=== PATIENT | female | born 1950 | race Caucasian/White ===

== ENCOUNTER 2021-07-03 09:34 | Inpatient (IN) ==
--- NOTE | 2021-07-03 10:31 | Emergency Department Note ---
HPI General Chief complaint: Weakness Stated complaint: weakness, SOB Time Seen by Provider: 07/03/21 10:02 Source: patient Mode of arrival: wheelchair Limitations: no limitations History of Present Illness HPI Narrative: Patient is a 70-year-old lady arrives emergency department by private vehicle accompanied by her advertising rep complaining of generalized weakness. The patient says she has been feeling fatigued and rundown since Saturday. Unable to get out of bed all day Saturday because she felt too weak to stand up. She has had mild associated nausea. She does note that her blood sugar was low on Saturday but she has eaten since and has had normal glucose. Despite this, she has continued to have generalized weakness and felt too weak to get out of bed. Her advertising rep was concerned about the persistent nature of her symptoms so she brought her in for further evaluation. Patient has had similar symptoms in the past with hypoglycemia. She denies any vomiting or abdominal pain. She had a normal bowel movement 2 days ago and has been passing gas. She has been fully vaccinated for COVID-19. Related Data Home Medications Medication Instructions Recorded Confirmed ferrous sulfate 28 mg iron tablet 325 mg PO QDAY 07/25/16 07/03/21 amlodipine 5 mg tablet 5 mg PO QDAY 07/24/18 07/03/21 carvedilol 6.25 mg tablet 25 mg PO BID 90 Days #720 tab 07/24/18 07/03/21 potassium chloride 10 mEq 20 meq PO QDAY 07/24/18 07/03/21 capsule,extended release bupropion HCl 75 mg tablet 75 mg PO BID 01/22/19 07/03/21 insulin glargine 100 unit/mL (3 15 unit SQ DAILY 01/22/19 07/03/21 mL) subcutaneous pen clotrimazole-betamethasone 1 1 applic TOPICAL BID PRN 07/03/21 07/03/21 %-0.05 % topical cream denosumab 60 mg/mL subcutaneous 60 mg SUBCUT ONCE 07/03/21 07/03/21 syringe (Prolia) ondansetron HCl 4 mg tablet 4 mg PO Q6H PRN 07/03/21 07/03/21 tramadol 50 mg tablet 50 mg PO BID PRN 07/03/21 07/03/21 vitamin B complex 1 cap PO WEEKLY 07/03/21 07/03/21 Previous Rx's Medication Instructions Recorded flunisolide 25 mcg (0.025 %) nasal 2 spray INTRANASAL BID PRN #25 ml 12/31/16 spray glipizide 10 mg tablet 10 mg PO QDAY #90 tab 07/09/17 gabapentin 300 mg capsule See Dose Instructions .ROUTE 07/19/17 .COMPLEX #90 cap omeprazole 40 mg capsule,delayed 40 mg PO QDAY #90 cap 10/24/17 release atorvastatin 10 mg tablet 10 mg PO QDAY #90 tab 05/22/18 levothyroxine 75 mcg tablet 75 mcg PO QDAY #30 tab 07/22/18 torsemide 20 mg tablet 20 mg PO QDAY #90 tab 07/24/18 Allergies Allergy/AdvReac Type Severity Reaction Status Date / Time BERNA Inhibitors AdvReac Severe renal Verified 07/03/21 09:38 insufficiency ARB-Angiotensin Receptor AdvReac Severe renal Verified 07/03/21 09:38 Antagonist insufficiency spironolactone AdvReac Intermediate hyperkalemi Verified 07/03/21 09:38 a vancomycin [VANCOMYCIN] AdvReac Mild SEVERE Verified 07/03/21 09:38 VOMITING Review of Systems ROS ROS Narrative: Narrative: All systems ED: reviewed and negative except as stated. Cardiovascular: Denies chest pain Respiratory: Denies shortness of breath or cough PFSH Narrative Patient History Narrative: Narrative: Medical/Surgical/Family History All Active Problems (Updated 07/03/21 @ 15:33 by Norberto Mabry DO) UTI (urinary tract infection) (Acute) Congestive heart failure (Acute) Gout attack (Acute) Hypoglycemia (Acute) Gastroenteritis (Acute) Diabetes mellitus (Acute) Shingles (Acute) Edema (Acute) Chronic UTI (Chronic) Diabetes mellitus (Chronic) Osteoporosis (Chronic) Encounter for Health Maintenance Examination in Adult (Acute) Vitamin D deficiency (Chronic) Visual disturbance (Chronic 06/08/14) Rhabdomyolysis (Chronic 08/23/14) Renal osteodystrophy (Chronic) Pseudophakia (Chronic 06/08/14) Osteoarthritis (Chronic) Obesity (Chronic) Mild nonproliferative diabetic retinopathy (Chronic 06/08/14) Hyperparathyroidism, secondary renal (Chronic) Hyperlipemia (Chronic) Hyperglycemia (Chronic) HTN (hypertension) (Chronic 08/23/14) Gastroesophageal reflux (Chronic) 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 Schultz, lactic Acute gouty arthropathy Anemia in chronic kidney disease Blepharitis (06/08/14) Dr. Wilmer Bliss Chronic kidney disease, stage III (moderate) (06/04/12) Closed rib fracture Contusion, chest wall Degenerative disc disease Depressive disorder Diabetes mellitus Elbow contusion Encounter for Health Maintenance Examination in Adult last colonoscopy Dr Michael 2012 or so. Normal. Next due 2022. Gets labs done by Dr Kay q3m, will add lipid profile Fracture of tibia with fibula, closed (08/22/14) Gallstones 2000 Gastroesophageal reflux Gout attack History of gout HTN (hypertension) (08/23/14) Dr. Schultz Hyperglycemia Hyperlipemia Hyperparathyroidism, secondary renal Lateral epicondylitis of left elbow Mild nonproliferative diabetic retinopathy (06/08/14) Dr.Mark Sullivan Obesity Osteoarthritis Osteomyelitis, acute (09/20/14) Osteoporosis Proteinuria Pseudophakia (06/08/14) Dr. Wilmer Sullivan Renal osteodystrophy Rhabdomyolysis (08/23/14) Dr. Schultz Syncope and collapse (08/23/14) Dr. Schultz Type II diabetes mellitus with renal manifestations Type II diabetes mellitus, uncontrolled Visual disturbance (06/08/14) Dr. Wilmer Sullivan Vitamin D deficiency Surgical History History of biopsy (09/20/14) Left tibia acute osteomyelitis History of cataract surgery bilaterally History of cholecystectomy 2000 gallstones Status post debridement (10/22/14) Dr. Duke, see procedure note. Family History Mother Asthma Type 2 diabetes mellitus with complication Kidney disorder Father Cerebral infarction History of strokes Diabetes mellitus Acute myocardial infarction Unknown Allergic rhinitis Anemia Social History Smoking Status: Former smoker Alcohol Intake Frequency: does not drink Substance Use: does not use Exam Narrative Narrative: I reviewed the vital signs. Gen -patient is awake and alert and in no acute distress. The patient is well groomed. HEENT -head is atraumatic. There is no conjunctival pallor or scleral icterus. Mucous membranes are moist. CV -S1-S2 regular rate and rhythm. Peripheral pulses are palpable. There is no JVD. Resp -breathing is nonlabored. Lungs are clear to auscultation bilaterally. There is no cyanosis. GI - Abdomen is soft and nontender to palpation. There is no guarding or rebound tenderness. Derm -skin is warm and dry. There is no visible rash. MSK -present extremities are atraumatic. Patient's lower extremities are nontender to palpation. There is no visible rash. Steer tibial pulses are palpable bilaterally. Psych -patient has appropriate affect. The patient does not appear internally stimulated. Neuro -patient answers questions appropriately with fluent speech. Muscle strength is 5 out of 5 in bilateral lower extremities. Lower extremity sensation is intact. General Limitations: no limitations Course Vital Signs Vital signs: Vital Signs Temperature 98.7 F 07/03/21 09:35 Pulse Rate 83 07/03/21 09:35 Respiratory Rate 22 07/03/21 09:35 Blood Pressure 146/59 07/03/21 09:35 Pulse Oximetry (%) 96 07/03/21 09:35 Temperature 100.0 F H 07/03/21 14:50 Pulse Rate 80 07/03/21 14:52 Respiratory Rate 27 H 07/03/21 14:52 Blood Pressure 149/58 07/03/21 14:52 Pulse Oximetry (%) 90 07/03/21 14:52 [facility] Narrative Medical decision making narrative: Patient presents with generalized weakness. On initial exam she appears slightly dehydrated so she was given a small fluid bolus. Labs are remarkable for an elevated BNP and troponin that is minimally above the upper limit of normal. She has a leukocytosis and significant pyuria. Patient did develop a low-grade fever as well as mild hypoxemia in the emergency department. I discussed the test results with her and her advertising rep. I explained that I think she likely has a UTI and slightly decompensated heart failure. I recommended she be admitted for IV antibiotics and further diuresis. The patient was reluctantly agreeable to stay for further treatment. I discussed the patient's history examination and diagnostic findings with Dr. Ulrich, who agrees with the plan of care and accepts admission. Lab Data Lab results reviewed: Yes I reviewed the patient's lab results. Result diagrams: 07/03/21 10:19 Labs: Lab Results 07/03/21 07/03/21 07/03/21 Range/Units 10:19 10:19 10:19 WBC 15.4 H (4.5-11.0) K/mcL RBC 3.51 L (3.59-5.38) M/mcL Hgb 10.4 L (11.2-15.7) g/dL Hct 31.5 L (34.1-44.9) % POC Hct 30 L (36-48) % MCV 89.7 (80.0-100.0) fL MCH 29.6 (26.0-34.0) pg MCHC 33.0 (31.0-36.0) g/dL RDW 13.0 (11.5-14.5) % Plt Count 184 (140-440) K/mcL MPV 12.0 H (7.4-10.4) fL Neut % (Auto) 76.1 (38.0-78.0) % Lymph % (Auto) 13.3 L (15.5-49.0) % [place] % (Auto) 10.2 (1.0-12.0) % Eos % (Auto) 0.1 (0.0-7.0) % Baso % (Auto) 0.3 (0.0-2.0) % Lymph # (Auto) 2.05 (1.50-4.80) K/mcL [place] # (Auto) 1.57 H (0.10-0.90) K/mcL Eos # (Auto) 0.02 (0.00-0.70) K/mcL Baso # (Auto) 0.04 (0.00-0.30) K/mcL Absolute Neutrophils 11.73 H (1.80-8.00) K/mcL VBG Lactic Acid (0.5-2.0) mmol/L POC Sodium 137 (133-145) mEq/L POC Potassium 3.7 (3.3-5.1) mEql/L POC Chloride 101 (96-108) mEq/L POC Total CO2 19 L (22-30) mmol/L POC BUN 46 H (6-20) mg/dL POC Creatinine 3.1 H (0.6-1.2) mg/dL POC Glucose 132 H (70-105) mg/dL POC WB Ioniz Calcium 0.85 L (1.16-1.32) mmEq/L Troponin T 0.04 H* (<0.03) ng/mL NT-Pro-B Natriuret Pep 9470.0 H (<125.0) pg/mL Urine Color Urine Appearance (Clear) Urine pH (5.0-9.0) Ur Specific [place] (1.000-1.035) Urine Protein (Negative) mg/dL Urine Glucose (UA) (Negative) mg/dL Urine Ketones (Negative) mg/dL Urine Occult Blood (Negative) mg/dL Urine Nitrate (Negative) Urine Bilirubin (Negative) mg/dL Urine Urobilinogen mg/dL Ur Leukocyte Esterase (Negative) /uL Urine RBC (0-3) /hpf Urine WBC (0-4) /hpf Ur Squamous Epith Cells (0-4) /hpf Urine Bacteria (0) /hpf Urine Mucus (None) /hpf Ur Culture Indicated? 07/03/21 07/03/21 Range/Units 10:36 14:13 WBC (4.5-11.0) K/mcL RBC (3.59-5.38) M/mcL Hgb (11.2-15.7) g/dL Hct (34.1-44.9) % POC Hct (36-48) % MCV (80.0-100.0) fL MCH (26.0-34.0) pg MCHC (31.0-36.0) g/dL RDW (11.5-14.5) % Plt Count (140-440) K/mcL MPV (7.4-10.4) fL Neut % (Auto) (38.0-78.0) % Lymph % (Auto) (15.5-49.0) % [place] % (Auto) (1.0-12.0) % Eos % (Auto) (0.0-7.0) % Baso % (Auto) (0.0-2.0) % Lymph # (Auto) (1.50-4.80) K/mcL [place] # (Auto) (0.10-0.90) K/mcL Eos # (Auto) (0.00-0.70) K/mcL Baso # (Auto) (0.00-0.30) K/mcL Absolute Neutrophils (1.80-8.00) K/mcL VBG Lactic Acid 0.8 (0.5-2.0) mmol/L POC Sodium (133-145) mEq/L POC Potassium (3.3-5.1) mEql/L POC Chloride (96-108) mEq/L POC Total CO2 (22-30) mmol/L POC BUN (6-20) mg/dL POC Creatinine (0.6-1.2) mg/dL POC Glucose (70-105) mg/dL POC WB Ioniz Calcium (1.16-1.32) mmEq/L Troponin T (<0.03) ng/mL NT-Pro-B Natriuret Pep (<125.0) pg/mL Urine Color Yellow Urine Appearance Cloudy A (Clear) Urine pH 5.0 (5.0-9.0) Ur Specific [place] 1.008 (1.000-1.035) Urine Protein 100 A (Negative) mg/dL Urine Glucose (UA) Negative (Negative) mg/dL Urine Ketones Negative (Negative) mg/dL Urine Occult Blood 0.03 (Negative) mg/dL Urine Nitrate Negative (Negative) Urine Bilirubin Negative (Negative) mg/dL Urine Urobilinogen Negative mg/dL Ur Leukocyte Esterase 500 A (Negative) /uL Urine RBC 1 (0-3) /hpf Urine WBC 50 H (0-4) /hpf Ur Squamous Epith Cells 0 (0-4) /hpf Urine Bacteria Many A (0) /hpf Urine Mucus Few A (None) /hpf Ur Culture Indicated? yes ED POC Tests ED POC Tests: JUAN MIGUEL - Influenza A Negative JUAN MIGUEL - Influenza B Negative JUAN MIGUEL - SARS Antigen Negative Discharge Plan Patient/Caregiver Discharge Instructions Pt seen by SLIP INJECTOR AND APPLICATOR/PA only: No Clinical Impression: UTI (urinary tract infection), Congestive heart failure Patient Disposition: Xfer As Inpt ([facility]) Follow up with: Jose G Greer MD [Primary Care Provider] - Prescriptions: No Action flunisolide 25 mcg (0.025 %) spray,non-aerosol 2 spray INTRANASAL BID PRN (Reason: Symptoms) Qty: 25 12RF glipizide 10 mg tablet 10 mg PO QDAY Qty: 90 3RF gabapentin 300 mg capsule See Dose Instructions mg .ROUTE .COMPLEX Qty: 90 11RF Dose Instruction: Take 1 capsule each morning and 2 capsules in the evening Rx Instructions: Take 1 capsule each morning and 2 capsules in the evening atorvastatin 10 mg tablet 10 mg PO QDAY Qty: 90 1RF levothyroxine 75 mcg tablet 75 mcg PO QDAY Qty: 30 12RF ferrous sulfate 28 mg iron tablet 325 mg PO QDAY 0RF Label Comments: Patient is not certain on dose of iron she takes omeprazole 40 mg capsule,delayed release(DR/EC) 40 mg PO QDAY Qty: 90 3RF Rx Instructions: swallow whole (do not chew/crush/cut) carvedilol 6.25 mg tablet 25 mg PO BID 90 Days Qty: 720 0RF amlodipine 5 mg tablet 5 mg PO QDAY 0RF potassium chloride 10 mEq capsule, extended release 20 meq PO QDAY 0RF torsemide 20 mg tablet 20 mg PO QDAY Qty: 90 3RF bupropion HCl 75 MG tablet 75 mg PO BID 0RF insulin glargine 100 UNIT/ML insulin pen 15 unit SQ DAILY 0RF vitamin B complex Capsule 1 cap PO WEEKLY 0RF Prolia 60 mg/mL Syringe 60 mg SUBCUT ONCE 0RF Rx Instructions: twice yearly tramadol 50 mg Tablet 50 mg PO BID PRN (Reason: Pain) 0RF ondansetron HCl 4 mg Tablet 4 mg PO Q6H PRN (Reason: Nausea) 0RF clotrimazole-betamethasone 1-0.05 % Cream 1 applic TOPICAL BID PRN (Reason: Rash) 0RF
[2021-07-03] MEDS ORDERED: 0.9 % SODIUM CHLORIDE 1,000 ML IV ONE (10:34)
[2021-07-03 10:37] LABS: POC Blood Urea Nitrogen 46 mg/dL (6-20); POC CO2 19 mmol/L (22-30); POC Calcium, Ionized 0.85 mmEq/L (1.16-1.32); POC Chloride 101 mEq/L (96-108); POC Creatinine 3.1 mg/dL (0.6-1.2); POC Glucose, Random 132 mg/dL (70-105); POC Hematocrit 30 % (36-48); POC Potassium 3.7 mEql/L (3.3-5.1); POC Sodium 137 mEq/L (133-145)
[2021-07-03 11:09] LABS: Basophils # (Auto) 0.04 K/mcL (0.00-0.30); Basophils % (Auto) 0.3 % (0.0-2.0); Eosinophils # (Auto) 0.02 K/mcL (0.00-0.70); Eosinophils % (Auto) 0.1 % (0.0-7.0); Hematocrit 31.5 % (34.1-44.9); Hemoglobin 10.4 g/dL (11.2-15.7); Lymphocytes # (Auto) 2.05 K/mcL (1.50-4.80); Lymphocytes % (Auto) 13.3 % (15.5-49.0); Mean Cell Volume 89.7 fL (80.0-100.0); Monocytes # (Auto) 1.57 K/mcL (0.10-0.90); Monocytes % (Auto) 10.2 % (1.0-12.0); Neutrophils % (Auto) 76.1 % (38.0-78.0); Platelet Count 184 K/mcL (140-440); RBC 3.51 M/mcL (3.59-5.38); WBC 15.4 K/mcL (4.5-11.0)
--- NOTE | 2021-07-03 11:54 | XRay Report ---
CLINICAL INFORMATION: Dyspnea COMPARISON: 2014. TECHNIQUE: PA and Lateral views FINDINGS: The heart is mildly enlarged-increased from previous study. Mediastinum is normal. Pulmonary vessels are mildly distended no definite edema. Mild bibasilar atelectasis noted. No effusion. IMPRESSION: Borderline CHF or volume overload Interpreted and Authenticated by: Dorian Mcdonough 07/03/21
[2021-07-03] MEDS ORDERED: FUROSEMIDE 100 MG/10 ML VIAL IV ONE (12:46)
--- NOTE | 2021-07-03 14:31 | EKG ---
[facility] Test Date: 2021-07-03 Pat Name: Sharla Sanderson Department: ED Room: Gender: Female A P Manager: : 1950 Requested By: Norberto Mabry Order Number: [id number] Reading MD: Dorian Green M.D. Measurements Intervals [place] Rate: 80 P: 34 NC: 183 QRS: -23 QRSD: 121 T: 103 QT: 410 QTc: 473 Interpretive Statements Sinus rhythm Electronically Signed On 07-03-2021 14:30:56 PST by Dorian Green M.D. /[id number]
[2021-07-03] MEDS ORDERED: cefTRIAXone 1 GM VIAL IV ONE (14:50)
[2021-07-03 15:25] LABS: Appearance,Urine CLOUDY (Clear); Bacteria,Urine MANY /hpf (0); Bilirubin,Urine Negative (Negative); Color,Urine YELLOW; Culture Indicated,Urine yes; Glucose,Urine (UA) Negative (Negative); Ketones,Urine Negative (Negative); Leukocyte Esterase,Urine 500 /uL (Negative); Mucus,Urine FEW /hpf; Nitrate,Urine Negative (Negative); Protein,Urine 100 mg/dL (Negative); Specific Gravity,Urine 1.008 (1.000-1.035); Urine Blood 0.03 mg/dL (Negative); Urine RBC 1 /hpf (0-3); Urine Squamous Epithelial Cell 0 /hpf (0-4); Urine WBC 50 /hpf (0-4); Urobilinogen,Urine Negative
--- NOTE | 2021-07-03 15:32 | Internal Med History&Physical ---
HPI History of Present Illness Patient information: Note initiated : 07/03/21 at 3:29 pm Service Date, if different from initiated Date: [] Patient: Sharla Sanderson a 70 y/o F admitted on for weakness, SOB. Chief Complaint: [] History of present illness: Ms. Sanderson is a 70 year old F with a history of hypertension/hypothyroidism/CHF/HLD who presents to the ER after her caregiver currently from [facility] found her in a state of days this morning. Patient lives alone with the help of caregiver however through the weekend she was trying to manage herself. She became increasingly weak fatigued starting Saturday. Her health dramatically spiraled down. She was unable to feed herself or drink anything and has been confused throughout the weekend unable to function. Initial work-up in the ER was consistent with sepsis with UTI/CHF on chest imaging. Patient was started on antibiotic coverage. Also evidence of endorgan dysfunction including elevated creatinine. Subsequently hospitalist service was consulted in light of above At the time of my evaluation patient is accompanied with her caregiver Chinyere. She was able to answer most of the question. She denies active distress. She denies precipitating events including changes in medication, URI symptoms, diarrhea, dysuria fever chills or exposure to sick contacts. Review of systems 10 point review system was performed and is negative except for ones discussed above PFSH PFSH All Active Problems (Updated 07/03/21 @ 15:33 by Norberto Mabry DO) UTI (urinary tract infection) (Acute) Congestive heart failure (Acute) Gout attack (Acute) Hypoglycemia (Acute) Gastroenteritis (Acute) Diabetes mellitus (Acute) Shingles (Acute) Edema (Acute) Chronic UTI (Chronic) Diabetes mellitus (Chronic) Osteoporosis (Chronic) Encounter for Health Maintenance Examination in Adult (Acute) Vitamin D deficiency (Chronic) Visual disturbance (Chronic 06/08/14) Rhabdomyolysis (Chronic 08/23/14) Renal osteodystrophy (Chronic) Pseudophakia (Chronic 06/08/14) Osteoarthritis (Chronic) Obesity (Chronic) Mild nonproliferative diabetic retinopathy (Chronic 06/08/14) Hyperparathyroidism, secondary renal (Chronic) Hyperlipemia (Chronic) Hyperglycemia (Chronic) HTN (hypertension) (Chronic 08/23/14) Gastroesophageal reflux (Chronic) 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 Schultz, lactic Acute gouty arthropathy Anemia in chronic kidney disease Blepharitis (06/08/14) Dr. Wilmer Bliss Chronic kidney disease, stage III (moderate) (06/04/12) Closed rib fracture Contusion, chest wall Degenerative disc disease Depressive disorder Diabetes mellitus Elbow contusion Encounter for Health Maintenance Examination in Adult last colonoscopy Dr Michael 2012 or so. Normal. Next due 2022. Gets labs done by Dr Rahul ta, will add lipid profile Fracture of tibia with fibula, closed (08/22/14) Gallstones 2000 Gastroesophageal reflux Gout attack History of gout HTN (hypertension) (08/23/14) Dr. Schultz Hyperglycemia Hyperlipemia Hyperparathyroidism, secondary renal Lateral epicondylitis of left elbow Mild nonproliferative diabetic retinopathy (06/08/14) Dr.Mark Sullivan Obesity Osteoarthritis Osteomyelitis, acute (09/20/14) Osteoporosis Proteinuria Pseudophakia (06/08/14) Dr. Wilmer Sullivan Renal osteodystrophy Rhabdomyolysis (08/23/14) Dr. Schultz Syncope and collapse (08/23/14) Dr. Schultz Type II diabetes mellitus with renal manifestations Type II diabetes mellitus, uncontrolled Visual disturbance (06/08/14) Dr. Wilmer Sullivan Vitamin D deficiency Surgical History History of biopsy (09/20/14) Left tibia acute osteomyelitis History of cataract surgery bilaterally History of cholecystectomy 2000 gallstones Status post debridement (10/22/14) Dr. Duke, see procedure note. Family History Mother Asthma Type 2 diabetes mellitus with complication Kidney disorder Father Cerebral infarction History of strokes Diabetes mellitus Acute myocardial infarction Unknown Allergic rhinitis Anemia Social History marital status: occupational status: retired alcohol intake frequency: does not drink substance use type: does not use MEDS/ALLERGIES Home Medications and Allergies Home Medications Medication Instructions Recorded Confirmed Type ferrous sulfate 28 mg iron tablet 325 mg PO QDAY 07/25/16 07/03/21 History flunisolide 25 mcg (0.025 %) nasal 2 spray INTRANASAL BID PRN #25 ml 12/31/16 07/03/21 Rx spray glipizide 10 mg tablet 10 mg PO QDAY #90 tab 07/09/17 07/03/21 Rx gabapentin 300 mg capsule See Dose Instructions .ROUTE 07/19/17 07/03/21 Rx .COMPLEX #90 cap omeprazole 40 mg capsule,delayed 40 mg PO QDAY #90 cap 10/24/17 07/03/21 Rx release atorvastatin 10 mg tablet 10 mg PO QDAY #90 tab 05/22/18 07/03/21 Rx levothyroxine 75 mcg tablet 75 mcg PO QDAY #30 tab 07/22/18 07/03/21 Rx amlodipine 5 mg tablet 5 mg PO QDAY 07/24/18 07/03/21 History carvedilol 6.25 mg tablet 25 mg PO BID 90 Days #720 tab 07/24/18 07/03/21 History potassium chloride 10 mEq 20 meq PO QDAY 07/24/18 07/03/21 History capsule,extended release torsemide 20 mg tablet 20 mg PO QDAY #90 tab 07/24/18 07/03/21 Rx bupropion HCl 75 mg tablet 75 mg PO BID 01/22/19 07/03/21 History insulin glargine 100 unit/mL (3 15 unit SQ DAILY 01/22/19 07/03/21 History mL) subcutaneous pen clotrimazole-betamethasone 1 1 applic TOPICAL BID PRN 07/03/21 07/03/21 History %-0.05 % topical cream denosumab 60 mg/mL subcutaneous 60 mg SUBCUT ONCE 07/03/21 07/03/21 History syringe (Prolia) ondansetron HCl 4 mg tablet 4 mg PO Q6H PRN 07/03/21 07/03/21 History tramadol 50 mg tablet 50 mg PO BID PRN 07/03/21 07/03/21 History vitamin B complex 1 cap PO WEEKLY 07/03/21 07/03/21 History Allergies Allergy/AdvReac Type Severity Reaction Status Date / Time BERNA Inhibitors AdvReac Severe renal Verified 07/03/21 09:38 insufficiency ARB-Angiotensin Receptor AdvReac Severe renal Verified 07/03/21 09:38 Antagonist insufficiency spironolactone AdvReac Intermediate hyperkalemi Verified 07/03/21 09:38 a vancomycin [VANCOMYCIN] AdvReac Mild SEVERE Verified 07/03/21 09:38 VOMITING EXAM Constitutional Vitals: Temp Pulse Resp BP Pulse Ox 100.0 F H 80 27 H 149/58 90 07/03/21 14:50 07/03/21 14:52 07/03/21 14:52 07/03/21 14:52 07/03/21 14:52 Alert but anxious Head normocephalic Oral cavity dry No ear or nose discharge Eye no subconjunctival pallor, movement symmetrical S1-S2 occasionally irregular, ESM grade 1 Nonlabored breathing Nondistended nontender abdomen Lower extremity no cyanosis clubbing or joint swelling Skin no suspicious lesion Psych anxious but no hallucination Neuro GCS 13 DATA Data Completed and Pending Labs: Labs from last 24 hours 07/03/21 07/03/21 07/03/21 14:13 10:36 10:19 WBC RBC Hgb Hct POC Hct 30 L MCV MCH MCHC RDW Plt Count MPV Neut % (Auto) Lymph % (Auto) Riley % (Auto) Eos % (Auto) Baso % (Auto) Lymph # (Auto) Riley # (Auto) Eos # (Auto) Baso # (Auto) Absolute Neutrophils VBG Lactic Acid 0.8 POC Sodium 137 POC Potassium 3.7 POC Chloride 101 POC Total CO2 19 L POC BUN 46 H POC Creatinine 3.1 H POC Glucose 132 H POC WB Ioniz Calcium 0.85 L Troponin T NT-Pro-B Natriuret Pep 9470.0 H Urine Color Yellow Urine Appearance Cloudy A Urine pH 5.0 Ur Specific [place] 1.008 Urine Protein 100 A Urine Glucose (UA) Negative Urine Ketones Negative Urine Occult Blood 0.03 Urine Nitrate Negative Urine Bilirubin Negative Urine Urobilinogen Negative Ur Leukocyte Esterase 500 A Urine RBC 1 Urine WBC 50 H Ur Squamous Epith Cells 0 Urine Bacteria Many A Urine Mucus Few A Ur Culture Indicated? yes 07/03/21 07/03/21 10:19 10:19 WBC 15.4 H RBC 3.51 L Hgb 10.4 L Hct 31.5 L POC Hct MCV 89.7 MCH 29.6 MCHC 33.0 RDW 13.0 Plt Count 184 MPV 12.0 H Neut % (Auto) 76.1 Lymph % (Auto) 13.3 L Riley % (Auto) 10.2 Eos % (Auto) 0.1 Baso % (Auto) 0.3 Lymph # (Auto) 2.05 Riley # (Auto) 1.57 H Eos # (Auto) 0.02 Baso # (Auto) 0.04 Absolute Neutrophils 11.73 H VBG Lactic Acid POC Sodium POC Potassium POC Chloride POC Total CO2 POC BUN POC Creatinine POC Glucose POC WB Ioniz Calcium Troponin T 0.04 H* NT-Pro-B Natriuret Pep Urine Color Urine Appearance Urine pH Ur Specific [place] Urine Protein Urine Glucose (UA) Urine Ketones Urine Occult Blood Urine Nitrate Urine Bilirubin Urine Urobilinogen Ur Leukocyte Esterase Urine RBC Urine WBC Ur Squamous Epith Cells Urine Bacteria Urine Mucus Ur Culture Indicated? A/P Narrative A/P Narrative: * Acute hypoxic respiratory failure secondary to acute decompensated heart failure. Continue supplemental oxygen/noninvasive ventilation if indicated, serial imaging/blood gas * Acute decompensated heart failure, echocardiogram, gentle diuresis in the setting of sepsis, strict I's and O's and daily weights * Severe sepsis with endorgan dysfunction, secondary to UTI/suspected pneumonia continue antibiotic coverage, pancultures * Complicated UTI continue to biotic coverage, cultures * Acute on chronic kidney injury-Baseline stage IIIb CKD, nephrology consult * Weakness and deconditioning, PT OT/nutrition support * History of DM type II continue basal panel insulin * GERD continue PPI * Hypothyroidism contraction * Neuropathy continue gabapentin * Hypertension continue amlodipine * HLD continue statin * Anxiety disorder continue bupropion * Prophylaxis Heparin Plan * Inpatient PCU admission * Supplemental oxygen, gentle diuresis, I's and O's, daily weights * Echocardiogram * Antibiotic coverage * Sepsis management per guidelines * De-escalate antibiotics based on culture sensitivities Time Spent With Patient Time: Total time spent is greater than 50% in coordination of care (as documented) at patient's floor/unit and/or counseling patient: Total time spent with greater than 50% in coordination of care (as documented) at patient's floor/unit and/or counseling patient:: Greater than 35 minutes
[2021-07-03] MEDS ORDERED: MELATONIN 3 MG TABLET PO PRN (18:27)
[2021-07-03] MEDS ORDERED: POLYETHYLENE GLYCOL 3350 17 GM PACKET PO PRN (18:27)
[2021-07-03] MEDS ORDERED: BISACODYL 10 MG SUPP.RECT PR PRN (18:27)
[2021-07-03] MEDS ORDERED: ACETAMINOPHEN 325 MG TABLET PO PRN (18:27)
[2021-07-03] MEDS ORDERED: 0.9 % SODIUM CHLORIDE 1,000 ML IV SCH (18:27)
[2021-07-03] MEDS ORDERED: ONDANSETRON 4 MG ODT TABLET SL PRN (18:27)
[2021-07-03] MEDS ORDERED: MAGNESIUM SULFATE 2 GM/50 ML BAG IV PRN (18:27)
[2021-07-03] MEDS ORDERED: POTASSIUM CHLORIDE 40 MEQ in DEXTROSE 5% IN WATER 500 ML IV PRN (18:27)
[2021-07-03] MEDS ORDERED: METOPROLOL TARTRATE 5 MG/5 ML VIAL IV PRN (18:27)
[2021-07-03] MEDS ORDERED: ONDANSETRON 4 MG/2 ML VIAL IV PRN (18:27)
[2021-07-03] MEDS ORDERED: ACETAMINOPHEN 650 MG/65 ML BAG IV PRN (18:27)
[2021-07-03] MEDS ORDERED: guaiFENesin/CODEINE 10 ML UDC PO PRN (18:27)
[2021-07-03] MEDS ORDERED: POTASSIUM CHLORIDE 20 MEQ PACKET PO PRN (18:27)
[2021-07-03] MEDS: CARVEDILOL 12.5 MG TABLET PO SCH (20:34)
[2021-07-03] MEDS: AZITHROMYCIN 500 MG in DEXTROSE 5% IN WATER 250 ML IV SCH (20:34)
[2021-07-03] MEDS: HEPARIN 5,000 UNIT/ML VIAL SQ SCH (20:35)
[2021-07-03] MEDS: DOCUSATE SODIUM 100 MG CAPSULE PO SCH (20:41)
[2021-07-03] MEDS: SENNOSIDES/DOCUSATE SODIUM 1 TAB TABLET PO SCH (20:41)
[2021-07-03] MEDS: buPROPion 75 MG TABLET PO SCH (20:42)
[2021-07-03] MEDS: GABAPENTIN 300 MG CAPSULE PO SCH (20:44)
[2021-07-03] MEDS: 0.9 % SODIUM CHLORIDE 10 ML SYRINGE IV SCH (21:50)
[2021-07-04] MEDS: 0.9 % SODIUM CHLORIDE 10 ML SYRINGE IV SCH ×3 (06:14→20:50)
[2021-07-04] MEDS: LEVOTHYROXINE 75 MCG TABLET PO SCH (07:38)
[2021-07-04] MEDS: OMEPRAZOLE 20 MG CAPSULE PO SCH (07:38)
[2021-07-04] MEDS: DOCUSATE SODIUM 100 MG CAPSULE PO SCH ×2 (08:15→20:53)
[2021-07-04 08:33] LABS: Basophils # (Auto) 0.03 K/mcL (0.00-0.30); Basophils % (Auto) 0.2 % (0.0-2.0); Eosinophils # (Auto) 0.17 K/mcL (0.00-0.70); Eosinophils % (Auto) 1.4 % (0.0-7.0); Hematocrit 28.2 % (34.1-44.9); Hemoglobin 9.7 g/dL (11.2-15.7); Lymphocytes # (Auto) 1.93 K/mcL (1.50-4.80); Lymphocytes % (Auto) 15.4 % (15.5-49.0); Mean Cell Volume 89.5 fL (80.0-100.0); Mean Corpuscular HGB Conc 34.4 g/dL (31.0-36.0); Mean Platelet Volume 12.2 fL (7.4-10.4); Monocytes # (Auto) 1.15 K/mcL (0.10-0.90); Monocytes % (Auto) 9.2 % (1.0-12.0); Neutrophils % (Auto) 73.8 % (38.0-78.0); Platelet Count 180 K/mcL (140-440); RBC 3.15 M/mcL (3.59-5.38); Red Cell Distribution Width 12.7 % (11.5-14.5); WBC 12.6 K/mcL (4.5-11.0)
[2021-07-04] MEDS: HEPARIN 5,000 UNIT/ML VIAL SQ SCH ×2 (08:39→20:47)
[2021-07-04] MEDS: INSULIN GLARGINE, HUMAN 1 UNIT/0.01 ML SQ SCH (08:39)
[2021-07-04] MEDS: amLODIPine 5 MG TABLET PO SCH (08:40)
[2021-07-04] MEDS: GABAPENTIN 300 MG CAPSULE PO SCH ×2 (08:40→20:48)
[2021-07-04] MEDS: ATORVASTATIN 10 MG TABLET PO SCH (08:40)
[2021-07-04] MEDS: CARVEDILOL 12.5 MG TABLET PO SCH ×2 (08:40→16:55)
[2021-07-04] MEDS: MULTIVIT,THER IRON,CA,FA & MIN 1 TABLET PO SCH (08:40)
[2021-07-04 08:54] LABS: ALT/SGPT 18 U/L (<40); AST/SGOT 23 U/L (<32); Albumin 2.8 gm/dL (3.2-5.2); Albumin/Globulin Ratio 0.8 (1.0-2.3); Alkaline Phosphatase 99 U/L (39-117); Bilirubin,Direct < 0.2 mg/dL (0-0.3); Bilirubin,Total 0.4 mg/dL (0.1-1.0); Blood Urea Nitrogen 47 mg/dL (8-23); Calcium 6.6 mg/dL (8.6-10.4); Carbon Dioxide 17 mmol/L (22-30); Chloride 100 mmol/L (96-108); Globulin 3.4 gm/dL (2.2-3.7); Glomerular Filtration Rate 16; Glucose 95 mg/dL (70-105); Lactate Dehydrogenase 291 U/L (135-225); Phosphorous 2.7 mg/dL (2.5-4.5); Triglycerides 111 mg/dL (<150)
--- NOTE | 2021-07-04 10:14 | Nephrology Consult Note ---
HPI Data of Consult Patient: new to practice Consult date: 07/04/21 Primary Care Provider: Jose G Greer Family Provider: Dr Nelli Kay Consult Narrative Chief complaint: Bilateral leg weakness Reason for consult: Managment of CKD 4 History of present illness: Patient is a 70 yr old woman followed by Dr Nelli Kay with CKD G4. As per Dr Kay's note of 05/31/21 he felt she has hypertensive nephrosclerosis. She developed oedema with amlodipine so this was stopped and losartan started by PCP in October 2017. With this change her SCr went to 3.1 and hyperkalemia developed so the ARB was stopped and amlodipine re-initiated with some aldactone. Hyperkalemia developed again so the aldosterone antagonist was stopped. On day of visit in May, BP 160/94 and HR 71/min. BUN/SCr 32/2.4 mg/dl with eGFR 10. Na 142, K 3.9, Cl 103, and CO2 24. 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 She reports inability to ambulate within the past week and admitted to the hosp ital here at [facility]. Her GFR is reduced but not statistically worse than her outpatient values. Laboratory Tests 07/03/21 07/04/21 18:42 05:02 Sodium 133 Potassium 3.3 Chloride 100 Carbon Dioxide 17 L Anion Gap 16.0 BUN 47 H Creatinine 2.8 H GFR Calculation 16 Glucose 95 Uric Acid 11.0 H Calcium 6.6 L Phosphorus 2.7 Magnesium 1.5 L Total Bilirubin 0.4 Lactate Dehydrogenase 291 H Albumin 2.8 L Procalcitonin 1.24 H 07/03/21 14:13 Urine Color Yellow Urine Appearance Cloudy A Urine pH 5.0 Ur Specific [place] 1.008 Urine Protein 100 A Urine Glucose (UA) Negative Urine Ketones Negative Urine Occult Blood 0.03 Urine Nitrate Negative Urine Bilirubin Negative Urine Urobilinogen Negative Ur Leukocyte Esterase 500 A Urine RBC 1 Urine WBC 50 H Preliminary Urine C&S with Gm Neg Rods Serum Creatinine Echo Aug 2014: LVEF 75% / hyperdynamic LV Unable to perform bubble study No valvular issues Repeat Echo pending this hospitalization: Vital Signs Temp Pulse Pulse Resp BP Pulse Ox 07/04/21 08:21 74 17 99 07/04/21 08:05 36.7 C 77 21 112/61 99 07/04/21 06:01 70 23 H 129/60 92 07/04/21 04:02 36.4 C 69 23 H 129/57 96 07/04/21 02:01 68 22 117/49 96 07/04/21 00:01 36.3 C 67 21 128/63 98 07/03/21 23:08 97 07/03/21 22:01 70 23 H 122/61 97 07/03/21 20:09 36.7 C 75 13 123/50 92 07/03/21 18:58 76 24 H 140/60 94 07/03/21 18:54 36.7 C 76 25 H 137/62 96 07/03/21 18:18 36.8 C 76 24 H 97 07/03/21 17:59 80 25 H 93 07/03/21 17:46 78 29 H 140/61 90 07/03/21 17:31 77 20 137/62 92 07/03/21 17:17 78 26 H 134/60 95 07/03/21 17:02 79 26 H 144/58 93 07/03/21 16:46 28 H 132/63 07/03/21 16:30 78 26 H 140/58 91 07/03/21 16:18 80 21 92 07/03/21 16:17 80 26 H 124/57 93 07/03/21 16:01 80 25 H 154/79 91 07/03/21 15:46 81 26 H 138/67 94 07/03/21 15:31 78 15 146/59 92 07/03/21 15:16 79 19 141/96 91 07/03/21 15:01 81 22 157/53 89 L 07/03/21 14:52 80 27 H 149/58 90 07/03/21 14:50 37.8 C H 07/03/21 14:17 80 23 H 127/77 88 L 07/03/21 14:15 37.9 C H 07/03/21 14:01 77 27 H 139/67 93 07/03/21 13:46 79 22 152/69 93 07/03/21 13:31 79 25 H 159/67 90 07/03/21 13:16 82 19 152/66 94 07/03/21 13:01 79 27 H 152/65 85 L 07/03/21 12:46 79 28 H 150/69 87 L 07/03/21 12:31 78 26 H 155/64 87 L 07/03/21 12:16 79 25 H 157/57 85 L 07/03/21 12:00 79 25 H 157/60 87 L Intake and Output 07/03/21 07/04/21 07/04/21 21:59 05:59 13:59 Intake Total 1250 0 888 Output Total 400 400 475 Balance 850 -400 413 [place]: IV 1250 763 Sodium Chloride 0.9% 1,000 ml @ 1000 763 50 mls/hr IV .Q20H [facility] Rx#: [id number] Zithromax 500 mg In Dextrose 5% 250 in Water 250 ml @ 250 mls/hr IV Q24H [facility] Rx#:[id number] Oral 0 125 Output: Urine/Stool Mix 400 400 475 Other: Meal Breakfast Percent of Meal Consumed 25% Urine Appearance Straight Cloudy Urine Color Straight Pale Urine Odor Straight Normal Stool Size Moderate Stool Color Brown Stool Consistency Liquid # Bowel Movements 1 Weight 88.167 kg Current Medications Acetaminophen (Acetaminophen 325 Mg Tablet) 650 mg PO Q4-6HP PRN; Protocol PRN Reason: Per Pain Protocol/Fever > 101 Amlodipine Besylate (Amlodipine 5 Mg Tablet) 5 mg PO QDAY [facility] Last Admin: 07/04/21 08:40 Dose: 5 mg Documented by: Atorvastatin Calcium (Atorvastatin 10 Mg Tablet) 10 mg PO QDAY [facility] Last Admin: 07/04/21 08:40 Dose: 10 mg Documented by: Bisacodyl (Bisacodyl 10 Mg Supp.Rect) 10 mg HI Q2-3DAYS PRN PRN Reason: Constipation Bupropion HCl (Bupropion 75 Mg Tablet) 75 mg PO BID [facility] Last Admin: 07/04/21 11:11 Dose: 75 mg Documented by: Carvedilol (Carvedilol 12.5 Mg Tablet) [facility] Last Admin: 07/04/21 08:40 Dose: 25 mg Documented by: Docusate Sodium (Docusate Sodium 100 Mg Capsule) 100 mg PO BID [facility] Last Admin: 07/04/21 08:15 Dose: Not Given Documented by: Gabapentin (Gabapentin 300 Mg Capsule) [facility] [place] Last Admin: 07/04/21 08:40 Dose: 300 mg Documented by: Gabapentin (Gabapentin 300 Mg Capsule) 600 mg PO HS [facility] Last Admin: 07/03/21 20:44 Dose: 600 mg Documented by: Guaifenesin/Codeine Phosphate (Guaifenesin/Codeine 10 Ml Udc) 10 ml PO Q4HP PRN PRN Reason: Cough Heparin Sodium (Porcine) (Heparin 5,000 Unit/Ml Vial) 5,000 unit SQ Q12 [facility] Last Admin: 07/04/21 08:39 Dose: 5,000 unit Documented by: Azithromycin 500 mg/ Dextrose 250 mls @ 250 mls/hr IV Q24H [facility]; Protocol Stop: 07/05/21 19:26 Last Admin: 07/04/21 11:11 Dose: 250 mls/hr Documented by: Potassium Chloride 40 meq/ (Dextrose) 520 mls @ 130 mls/hr IV UD PRN PRN Reason: K+ = or < 3.5 Acetaminophen (Ofirmev) 650 mg in 65 mls @ 130 mls/hr IV Q6HP PRN; Protocol PRN Reason: Per Pain Protocol/Fever > 101 Magnesium Sulfate (Magnesium Sulfate) 2 gm in 50 mls @ 50 mls/hr IV UD PRN PRN Reason: MG = or < 1.7 Insulin Glargine (Insulin Glargine, Human 1 Unit/0.01 Ml) 15 unit SQ DAILY [facility] Last Admin: 07/04/21 08:39 Dose: 15 unit Documented by: Iron Carb/Multivit/Clerk Supervisor/Folic Acid (Multivit,Ther Iron,Ca,Fa & Min 1 Tablet) 1 tab PO DAILY [facility] Last Admin: 07/04/21 08:40 Dose: 1 tab Documented by: Levothyroxine Sodium (Levothyroxine 75 Mcg Tablet) 75 mcg PO QAMAC [facility] Last Admin: 07/04/21 07:38 Dose: 75 mcg Documented by: Melatonin (Melatonin 3 Mg Tablet) 3 mg PO HSP PRN PRN Reason: Insomnia Metoprolol Tartrate (Metoprolol Tartrate 5 Mg/5 Ml Vial) 5 mg IV Q5M PRN PRN Reason: Heart Rate > 140 bpm Omeprazole (Omeprazole 20 Mg Capsule) 40 mg PO ACB [facility] Last Admin: 07/04/21 07:38 Dose: 40 mg Documented by: Ondansetron HCl (Ondansetron 4 Mg Odt Tablet) 4 mg SL Q4-6HP PRN; Protocol PRN Reason: Nausea And Vomiting Ondansetron HCl (Ondansetron 4 Mg/2 Ml Vial) 4 mg IV Q4-6HP PRN; Protocol PRN Reason: Nausea And Vomiting Polyethylene Glycol (Polyethylene Glycol 3350 17 Gm Packet) 17 gm PO DAILYP PRN PRN Reason: Constipation Potassium Chloride (Potassium Chloride 20 Meq Tablet) 20 meq PO QAC [facility] Last Admin: 07/04/21 10:23 Dose: 20 meq Documented by: Potassium Chloride (Potassium Chloride 20 Meq Packet) 40 meq PO DAILYP PRN PRN Reason: K+ < 3.5 Senna/Docusate Sodium (Sennosides/Docusate Sodium 1 Tab Tablet) 1 tab PO HS [facility] Last Admin: 07/03/21 20:41 Dose: Not Given Documented by: Sodium Chloride (0.9 % Sodium Chloride 10 Ml Syringe) 10 ml IV Q8 [facility] Last Admin: 07/04/21 06:14 Dose: Not Given Documented by: Torsemide (Torsemide 10 Mg Tablet) 20 mg PO DAILY [facility] cc:: CC: Kit Garza Review of Systems All systems: reviewed and no additional remarkable complaints except as stated Review of systems: No NSAIDS Normal walking < 1 week LAPPER, (+) ADLs Renal history per Dr Kay's office notes Rest of ROS per HPI and/or ER and Hospitalist notes which [facility] All Active Problems (Updated 07/04/21 @ 16:36 by Rahul Gr MD) CKD stage 4 secondary to hypertension (Acute) Acute gouty arthropathy (Chronic) Anemia in chronic kidney disease (Chronic) Chronic kidney disease, stage III (moderate) (Chronic 06/04/12) Degenerative disc disease (Chronic) Depressive disorder (Chronic) 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) Gastroesophageal reflux (Chronic) HTN (hypertension) (Chronic 08/23/14) Hyperglycemia (Chronic) Hyperlipemia (Chronic) Hyperparathyroidism, secondary renal (Chronic) Mild nonproliferative diabetic retinopathy (Chronic 06/08/14) Obesity (Chronic) Osteoarthritis (Chronic) Pseudophakia (Chronic 06/08/14) Renal osteodystrophy (Chronic) Rhabdomyolysis (Chronic 08/23/14) Visual disturbance (Chronic 06/08/14) Vitamin D deficiency (Chronic) Encounter for Health Maintenance Examination in Adult (Acute) Osteoporosis (Chronic) Diabetes mellitus (Chronic) Chronic UTI (Chronic) Hypoglycemia (Acute) Gastroenteritis (Acute) Diabetes mellitus (Acute) Edema (Acute) Shingles (Acute) Gout attack (Acute) UTI (urinary tract infection) (Acute) Congestive heart failure (Acute) Medical History Acidosis (08/23/14) Dr. Schultz, lactic Acute gouty arthropathy Anemia in chronic kidney disease Blepharitis (06/08/14) Dr. Wilmer Bliss Chronic kidney disease, stage III (moderate) (06/04/12) Closed rib fracture Contusion, chest wall Degenerative disc disease Depressive disorder Diabetes mellitus Elbow contusion Encounter for Health Maintenance Examination in Adult last colonoscopy Dr Michael 2012 or so. Normal. Next due 2022. Gets labs done by Dr Rahul ta, will add lipid profile Fracture of tibia with fibula, closed (08/22/14) Gallstones 2000 Gastroesophageal reflux Gout attack History of gout HTN (hypertension) (08/23/14) Dr. Schultz Hyperglycemia Hyperlipemia Hyperparathyroidism, secondary renal Lateral epicondylitis of left elbow Mild nonproliferative diabetic retinopathy (06/08/14) Dr.Mark Sullivan Obesity Osteoarthritis Osteomyelitis, acute (09/20/14) Osteoporosis Proteinuria Pseudophakia (06/08/14) Dr. Wilmer Sullivan Renal osteodystrophy Rhabdomyolysis (08/23/14) Dr. Schultz Syncope and collapse (08/23/14) Dr. Schultz Type II diabetes mellitus with renal manifestations Type II diabetes mellitus, uncontrolled Visual disturbance (06/08/14) Dr. Wilmer Sullivan Vitamin D deficiency Surgical History History of biopsy (09/20/14) Left tibia acute osteomyelitis History of cataract surgery bilaterally History of cholecystectomy 2000 gallstones Status post debridement (10/22/14) Dr. Duke, see procedure note. Family History Mother Asthma Type 2 diabetes mellitus with complication Kidney disorder Father Cerebral infarction History of strokes Diabetes mellitus Acute myocardial infarction Unknown Allergic rhinitis Anemia Social History marital status: occupational status: retired alcohol intake frequency: does not drink substance use type: does not use MEDS/ALLERGIES Home Medications and Allergies Home Medications Medication Instructions Recorded Confirmed Type ferrous sulfate 28 mg iron tablet 325 mg PO QDAY 07/25/16 07/03/21 History flunisolide 25 mcg (0.025 %) nasal 2 spray INTRANASAL BID PRN #25 ml 12/31/16 07/03/21 Rx spray glipizide 10 mg tablet 10 mg PO QDAY #90 tab 07/09/17 07/03/21 Rx gabapentin 300 mg capsule See Dose Instructions .ROUTE 07/19/17 07/03/21 Rx .COMPLEX #90 cap omeprazole 40 mg capsule,delayed 40 mg PO QDAY #90 cap 10/24/17 07/03/21 Rx release atorvastatin 10 mg tablet 10 mg PO QDAY #90 tab 05/22/18 07/03/21 Rx levothyroxine 75 mcg tablet 75 mcg PO QDAY #30 tab 07/22/18 07/03/21 Rx amlodipine 5 mg tablet 10 mg PO QDAY 07/24/18 07/03/21 History potassium chloride 10 mEq 20 meq PO QDAY 07/24/18 07/03/21 History capsule,extended release torsemide 20 mg tablet 20 mg PO QDAY #90 tab 07/24/18 07/03/21 Rx bupropion HCl 75 mg tablet 75 mg PO BID 01/22/19 07/03/21 History insulin glargine 100 unit/mL (3 15 unit SQ DAILY 01/22/19 07/03/21 History mL) subcutaneous pen carvedilol 25 mg tablet 25 mg PO BID 07/03/21 07/03/21 History clotrimazole-betamethasone 1 1 applic TOPICAL BID PRN 07/03/21 07/03/21 History %-0.05 % topical cream denosumab 60 mg/mL subcutaneous 60 mg SUBCUT ONCE 07/03/21 07/03/21 History syringe (Prolia) ondansetron HCl 4 mg tablet 4 mg PO Q6H PRN 07/03/21 07/03/21 History tramadol 50 mg tablet 50 mg PO BID PRN 07/03/21 07/03/21 History vitamin B complex 1 cap PO WEEKLY 07/03/21 07/03/21 History Allergies Allergy/AdvReac Type Severity Reaction Status Date / Time BERNA Inhibitors AdvReac Severe renal Verified 07/03/21 09:38 insufficiency ARB-Angiotensin Receptor AdvReac Severe renal Verified 07/03/21 09:38 Antagonist insufficiency spironolactone AdvReac Intermediate hyperkalemi Verified 07/03/21 09:38 a vancomycin [VANCOMYCIN] AdvReac Mild SEVERE Verified 07/03/21 09:38 VOMITING Physical Examination Vital Signs Vital signs: Temp Pulse Resp BP Pulse Ox 36.7 C 74 17 112/61 99 07/04/21 08:05 07/04/21 08:21 07/04/21 08:21 07/04/21 08:05 07/04/21 08:21 General Appearance General appearance: chronically ill, fatigue and frail EENT EENT: ATNC, PERRL and mucous membranes dry Neck Neck: no JVD, JVD and no carotid bruit Respiratory Respiratory: clear Cardiovascular Cardiology: no murmurs, no rub, no gallops, no edema, regular rhythm, normal S1 and normal S2 Gastrointestinal Gastrointestinal: normoactive bowel sounds Integumentary Integumentary: no rash Neurologic Neurologic: no focal deficit, alert and oriented x3, CN 3-12 intact and upper extremity weakness (None) Musculoskeletal Musculoskeletal: no deformities Psychiatric Psychiatric: mood/affect appropriate Results Lab Results Result Diagrams: 07/04/21 05:03 07/04/21 05:02 Lab results: Most recent lab results Calcium 6.6 mg/dL (8.6-10.4) L 07/04/21 05:02 Phosphorus 2.7 mg/dL (2.5-4.5) 07/04/21 05:02 Magnesium 1.5 mg/dL (1.6-2.5) L 07/04/21 05:02 A/P Assessment and plan (1) CKD stage 4 secondary to hypertension: Assessment and plan: Followed by Dr Nelli Kay GFR relatively stable Probable has Type 4 RTA so no ACEi, ARBs or aldosterone antagonists B-blockers, hydralazine and loop diuretics for rLVEF if present. Status: Acute (2) UTI (urinary tract infection): Assessment and plan: Gm neg rods pending ID and speciation/sensitivity Status: Acute (3) Congestive heart failure: Assessment and plan: Awaiting results of echo Has NOT TOLERATED RAASI in the past so avoid ACEi/ARB/Aldosterone antagonists Status: Acute (4) Hyperparathyroidism, secondary renal: Assessment and plan: Check PTHi and Ca/PO4 Status: Chronic (5) Acute gouty arthropathy: Assessment and plan: Check uric acid Worsened by diuretics Status: Chronic Time Spent With Patient Time: Total time spent is greater than 50% in coordination of care (as documented) at patient's floor/unit and/or counseling patient: Total time spent with greater than 50% in coordination of care (as documented) at patient's floor/unit and/or counseling patient:: Greater than 35 minutes
[2021-07-04] MEDS: POTASSIUM CHLORIDE 20 MEQ TABLET PO SCH (10:23)
[2021-07-04] MEDS: buPROPion 75 MG TABLET PO SCH ×2 (11:11→20:49)
[2021-07-04] MEDS: AZITHROMYCIN 500 MG in DEXTROSE 5% IN WATER 250 ML IV SCH (11:11)
--- NOTE | 2021-07-04 11:44 | Internal Med Progress Note ---
SUBJECTIVE Subjective Patient information: Note initiated : 07/04/21 at 11:37 am Service Date, if different from initiated Date: [] Patient: Sharla Sanderson a 70 y/o F admitted on 07/03/21 for weakness, SOB. Chief Complaint: [] Interval history: Ms. Sanderson is a 70 year old F with a history of hypertension/hypothyroidism/CHF/HLD/CKD stage III who presents to the ER after her caregiver currently from [facility] found her in a state of daze this morning. Patient lives alone with the help of caregiver however through the weekend she was trying to manage herself without the caregiver She became increasingly weak fatigued starting Saturday. Her health dramatically spiraled down. She was unable to feed herself or drink anything and has been confused throughout the weekend unable to get around. Initial work-up in the ER was consistent with sepsis with UTI/pulmonary congestion on chest imaging. Patient was started on antibiotic coverage. Also evidence of endorgan dysfunction including elevated creatinine 50% above baseline Subsequently hospitalist service was consulted in light of above At the time of my evaluation patient is accompanied with her caregiver Chinyere. She was able to answer most of the question. She denies active distress. She denies precipitating events including changes in medication, URI symptoms, diarrhea, dysuria fever chills or exposure to sick contacts. 07/04-patient seen in room. Feels a lot better. Alert lucid. Caregiver at bedside. Tolerating diet. Able to ambulate to the hallway and back to physical therapy. White count down from 15-12.Creatinine improved from 3.1-2.8. Nephr ology on board, echocardiogram pending. On 2 L oxygen. No concerns expressed with nursing staff other than an episode of diarrhea. Check C. difficile No overnight fever chills chest pain or telemetry events. Transfer to medical floor. DC IV fluids. Constitutional Vitals: Vital Signs Temp Pulse Resp BP Pulse Ox 98.0 F 74 17 112/61 99 07/04/21 08:05 07/04/21 08:21 07/04/21 08:21 07/04/21 08:05 07/04/21 08:21 Period Temp Pulse Resp BP Sys/Kay Pulse Ox Last 24 Hr 97.4 F-100.2 F 67-82 13-29 112-159/49-96 85-99 Intake and Output 07/03/21 07/04/21 07/04/21 21:59 05:59 13:59 Intake Total 1250 0 888 Output Total 400 400 475 Balance 850 -400 413 Weight 88.167 kg Alert oriented No labored breathing No anxiety On 2 L oxygen No lymphedema Intake & Output: Intake & Output 07/03/21 07/04/21 07/04/21 21:59 05:59 13:59 Intake Total 1250 0 888 Output Total 400 400 475 Balance 850 -400 413 Weight 88.167 kg Intake: IV 1250 763 Sodium Chloride 0.9% 1,000 ml @ 1000 763 50 mls/hr IV .Q20H [facility] Rx#: [id number] Zithromax 500 mg In Dextrose 5% 250 in Water 250 ml @ 250 mls/hr IV Q24H [facility] Rx#:[id number] Oral 0 125 Output: Urine/Stool Mix 400 400 475 Other: Meal Breakfast Percent of Meal Consumed 25% Urine Appearance Straight Cloudy Urine Color Straight Pale Urine Odor Straight Normal Stool Size Moderate Stool Color Brown Stool Consistency Liquid # Bowel Movements 1 OBJ DATA Labs CBC & Chem 7: 07/04/21 05:03 07/04/21 05:02 Labs: Abnormal Lab Results 07/04/21 07/04/21 07/03/21 05:03 05:02 18:42 WBC 12.6 H RBC 3.15 L Hgb 9.7 L Hct 28.2 L POC Hct MPV 12.2 H Lymph % (Auto) 15.4 L [place] # (Auto) 1.15 H Absolute Neutrophils 9.28 H Carbon Dioxide 17 L POC Total CO2 POC BUN BUN 47 H Creatinine 2.8 H POC Creatinine POC Glucose Uric Acid 11.0 H Calcium 6.6 L POC WB Ioniz Calcium Magnesium 1.5 L Lactate Dehydrogenase 291 H Troponin T NT-Pro-B Natriuret Pep Albumin 2.8 L Albumin/Globulin Ratio 0.8 L Procalcitonin 1.24 H Urine Appearance Urine Protein Ur Leukocyte Esterase Urine WBC Urine Bacteria Urine Mucus 07/03/21 07/03/21 07/03/21 14:13 10:19 10:19 WBC RBC Hgb Hct POC Hct 30 L MPV Lymph % (Auto) [place] # (Auto) Absolute Neutrophils Carbon Dioxide POC Total CO2 19 L POC BUN 46 H BUN Creatinine POC Creatinine 3.1 H POC Glucose 132 H Uric Acid Calcium POC WB Ioniz Calcium 0.85 L Magnesium Lactate Dehydrogenase Troponin T 0.04 H* NT-Pro-B Natriuret Pep 9470.0 H Albumin Albumin/Globulin Ratio Procalcitonin Urine Appearance Cloudy A Urine Protein 100 A Ur Leukocyte Esterase 500 A Urine WBC 50 H Urine Bacteria Many A Urine Mucus Few A 07/03/21 10:19 WBC 15.4 H RBC 3.51 L Hgb 10.4 L Hct 31.5 L POC Hct MPV 12.0 H Lymph % (Auto) 13.3 L [place] # (Auto) 1.57 H Absolute Neutrophils 11.73 H Carbon Dioxide POC Total CO2 POC BUN BUN Creatinine POC Creatinine POC Glucose Uric Acid Calcium POC WB Ioniz Calcium Magnesium Lactate Dehydrogenase Troponin T NT-Pro-B Natriuret Pep Albumin Albumin/Globulin Ratio Procalcitonin Urine Appearance Urine Protein Ur Leukocyte Esterase Urine WBC Urine Bacteria Urine Mucus Meds: Medications Acetaminophen (Acetaminophen 325 Mg Tablet) 650 mg PO Q4-6HP PRN; Protocol PRN Reason: Per Pain Protocol/Fever > 101 Amlodipine Besylate (Amlodipine 5 Mg Tablet) 5 mg PO QDAY [facility] Last Admin: 07/04/21 08:40 Dose: 5 mg Documented by: Atorvastatin Calcium (Atorvastatin 10 Mg Tablet) 10 mg PO QDAY [facility] Last Admin: 07/04/21 08:40 Dose: 10 mg Documented by: Bisacodyl (Bisacodyl 10 Mg Supp.Rect) 10 mg [place] Q2-3DAYS PRN PRN Reason: Constipation Bupropion HCl (Bupropion 75 Mg Tablet) 75 mg PO BID [facility] Last Admin: 07/04/21 11:11 Dose: 75 mg Documented by: Carvedilol ([facility] 12.5 Mg [facility]t) [facility] Last Admin: 07/04/21 08:40 Dose: 25 mg Documented by: Docusate Sodium (Docusate Sodium 100 Mg Capsule) 100 mg PO BID [facility] Last Admin: 07/04/21 08:15 Dose: Not Given Documented by: Gabapentin (Gabapentin 300 Mg Capsule) 300 mg PO QAM [facility] Last Admin: 07/04/21 08:40 Dose: 300 mg Documented by: Gabapentin (Gabapentin 300 Mg Capsule) 600 mg PO [facility] Last Admin: 07/03/21 20:44 Dose: 600 mg Documented by: Guaifenesin/Codeine Phosphate (Guaifenesin/Codeine 10 Ml Udc) 10 ml PO Q4HP PRN PRN Reason: Cough Heparin Sodium (Porcine) (Heparin 5,000 Unit/Ml Vial) 5,000 unit SQ Q12 [facility] Last Admin: 07/04/21 08:39 Dose: 5,000 unit Documented by: Azithromycin 500 mg/ Dextrose 250 mls @ 250 mls/hr IV Q24H [facility]; Protocol Stop: 07/05/21 19:26 Last Admin: 07/04/21 11:11 Dose: 250 mls/hr Documented by: Potassium Chloride 40 meq/ (Dextrose) 520 mls @ 130 mls/hr IV UD PRN PRN Reason: K+ = or < 3.5 Acetaminophen (Ofirmev) 650 mg in 65 mls @ 130 mls/hr IV Q6HP PRN; Protocol PRN Reason: Per Pain Protocol/Fever > 101 Magnesium Sulfate (Magnesium Sulfate) 2 gm in 50 mls @ 50 mls/hr IV UD PRN PRN Reason: MG = or < 1.7 Insulin Glargine (Insulin Glargine, Human 1 Unit/0.01 Ml) 15 unit SQ DAILY [facility] Last Admin: 07/04/21 08:39 Dose: 15 unit Documented by: Iron Carb/Multivit/[place]/Folic Acid (Multivit,Ther Iron,Ca,Fa & Min 1 Tablet) 1 tab PO DAILY [facility] Last Admin: 07/04/21 08:40 Dose: 1 tab Documented by: Levothyroxine Sodium (Levothyroxine 75 Mcg Tablet) 75 mcg PO QAMAC [facility] Last Admin: 07/04/21 07:38 Dose: 75 mcg Documented by: Melatonin (Melatonin 3 Mg Tablet) 3 mg PO HSP PRN PRN Reason: Insomnia Metoprolol Tartrate (Metoprolol Tartrate 5 Mg/5 Ml Vial) 5 mg IV Q5M PRN PRN Reason: Heart Rate > 140 bpm Omeprazole (Omeprazole 20 Mg Capsule) 40 mg PO ACB [facility] Last Admin: 07/04/21 07:38 Dose: 40 mg Documented by: Ondansetron HCl (Ondansetron 4 Mg Odt Tablet) 4 mg SL Q4-6HP PRN; Protocol PRN Reason: Nausea And Vomiting Ondansetron HCl (Ondansetron 4 Mg/2 Ml Vial) 4 mg IV Q4-6HP PRN; Protocol PRN Reason: Nausea And Vomiting Polyethylene Glycol (Polyethylene Glycol 3350 17 Gm Packet) 17 gm PO DAILYP PRN PRN Reason: Constipation Potassium Chloride (Potassium Chloride 20 Meq Tablet) 20 meq PO QAMCC [facility] Last Admin: 07/04/21 10:23 Dose: 20 meq Documented by: Potassium Chloride (Potassium Chloride 20 Meq Packet) 40 meq PO DAILYP PRN PRN Reason: K+ < 3.5 Senna/Docusate Sodium (Sennosides/Docusate Sodium 1 Tab Tablet) 1 tab PO HS [facility] Last Admin: 07/03/21 20:41 Dose: Not Given Documented by: Sodium Chloride (0.9 % Sodium Chloride 10 Ml Syringe) 10 ml IV Q8 [facility] Last Admin: 07/04/21 06:14 Dose: Not Given Documented by: Torsemide (Torsemide 10 Mg Tablet) 20 mg PO DAILY [facility] A/P Narrative A/P Narrative: * Acute hypoxic respiratory failure secondary to acute decompensated heart failure. Continue supplemental oxygen/noninvasive ventilation if indicated, serial imaging/blood gas * Acute decompensated heart failure, echocardiogram pending, continue home dose diuretics. Currently well compensated * Severe sepsis with endorgan dysfunction, secondary to UTI/suspected pneumonia continue antibiotic coverage, pancultures * Complicated UTI continue antibiotic coverage, cultures pending * Acute on chronic kidney injury-Baseline stage IIIb CKD, nephrology consult. Creatinine down from 3.1-2.8 * Weakness and deconditioning, PT OT/nutrition support * History of DM type II continue basal prandial insulin/CC diet * GERD continue PPI * Hypothyroidism contraction * Neuropathy continue gabapentin * Hypertension continue amlodipine * HLD continue statin * Anxiety disorder continue bupropion * Prophylaxis Heparin Plan * Transfer to medical floor * Continue gentle diuresis/antibiotic coverage and de-escalate based on culture sensitivities * Await echocardiogram * Monitor renal function * Pre-existing medical condition management home medications * PT OT/nutrition support * Discharge planning Time Spent With Patient Time: Total time spent is greater than 50% in coordination of care (as documented) at patient's floor/unit and/or counseling patient: QUALITY VTE Deep Vein Thrombosis/Pulmonary Embolism Present on Admission: No
[2021-07-04] MEDS: INSULIN LISPRO 1 UNIT/0.01 ML UNIT SQ SCH ×2 (16:58→20:47)
[2021-07-04] MEDS: SENNOSIDES/DOCUSATE SODIUM 1 TAB TABLET PO SCH (20:53)
[2021-07-04] MEDS ORDERED: NON FORMULARY MEDICATION 1 DOSE MISCELL (Carvedilol 25 mg tablet) PO SCH (21:00)
[2021-07-05] MEDS: 0.9 % SODIUM CHLORIDE 10 ML SYRINGE IV SCH ×3 (05:19→20:47)
--- NOTE | 2021-07-05 06:38 | XRay Report ---
CLINICAL INFORMATION: Follow-up CHF COMPARISON: 07/01/2021 TECHNIQUE: PA and Lateral views FINDINGS: Borderline cardiomegaly is unchanged. Mediastinum is unremarkable. The pulmonary vessels remain mildly distended while compared with 08/22/2014 baseline chest x-ray. Moderate bibasilar airspace disease is likely atelectasis. No definite infiltrates or effusions. IMPRESSION: Borderline CHF. Minor bibasilar atelectasis. Interpreted and Authenticated by: Dorian Mcdonough 07/05/21
--- NOTE | 2021-07-05 07:59 | Nephrology Progress Note ---
SUBJECTIVE Subjective Patient information: Note initiated : 07/05/21 at 7:58 am Service Date, if different from initiated Date: [] Patient: Sharla Sanderson 70 y/o F admitted on 07/03/21 for weakness, SOB. Chief Complaint: [leg weakness] Principal diagnosis: ARF on CKD 3 Interval history: Seen on rounds. Transferred to [facility] Feels better Vital Signs Temp Pulse Pulse Resp BP BP Pulse Ox 07/05/21 03:48 36.9 C 73 20 115/54 93 07/04/21 23:43 37.2 C 68 18 116/52 92 07/04/21 19:49 37.6 C H 65 20 122/58 100 07/04/21 15:31 36.1 C L 67 20 133/61 96 07/04/21 15:22 69 18 113/60 96 07/04/21 14:01 22 114/51 07/04/21 13:19 65 21 91 07/04/21 12:00 36.3 C 19 119/65 07/04/21 10:00 68 18 116/63 97 07/04/21 08:21 74 17 99 07/04/21 08:05 36.7 C 77 21 112/61 99 Intake and Output 07/04/21 07/05/21 07/05/21 21:59 05:59 13:59 Intake Total 410 425 Output Total 200 425 Balance 210 0 Intake: IV 50 Oral 360 425 Output: Void Amount 200 425 Other: Urine Appearance Clear Urine Color Bright Yellow Urine Odor Foul Weight 88.632 kg Laboratory Tests 07/05/21 07/05/21 07/05/21 05:11 05:12 05:12 Sodium 134 Potassium 3.6 Chloride 99 Carbon Dioxide 18 L Anion Gap 17.0 H BUN 55 H Creatinine 2.8 H GFR Calculation 16 Glucose 78 Uric Acid 11.5 H Calcium 6.6 L Phosphorus 2.8 Magnesium 2.5 Total Bilirubin 0.3 GGT 29 AST 24 ALT 17 Alkaline Phosphatase 102 Lactate Dehydrogenase 339 H Total Creatine Kinase 202 H Total Protein 6.1 Albumin 2.8 L PTH Intact 448.6 H Blood culture NG at 24 hr Urine culture with Gm Neg Bacillus - ID & sensitivities pending 07/05/21: IMPRESSION: Borderline CHF. Minor bibasilar atelectasis. Current Medications Acetaminophen (Acetaminophen 325 Mg Tablet) 650 mg PO Q4-6HP PRN; Protocol PRN Reason: Per Pain Protocol/Fever > 101 Amlodipine Besylate (Amlodipine 5 Mg Tablet) 5 mg PO QDAY [facility] Last Admin: 07/04/21 08:40 Dose: 5 mg Documented by: Atorvastatin Calcium (Atorvastatin 10 Mg Tablet) 10 mg PO QDAY [facility] Last Admin: 07/04/21 08:40 Dose: 10 mg Documented by: Bisacodyl (Bisacodyl 10 Mg Supp.Rect) 10 mg [place] Q2-3DAYS PRN PRN Reason: Constipation Bupropion HCl (Bupropion 75 Mg Tablet) 75 mg PO BID [facility] Last Admin: 07/04/21 20:49 Dose: 75 mg Documented by: [facility]ilol ([facility]ilol 12.5 Mg Tablet) [facility] Last Admin: 07/04/21 16:55 Dose: 25 mg Documented by: Diagnostic Test (Pha) (Accu-Chek 1 Each Strip) 1 each FS ACHS [facility] Last Admin: 07/04/21 20:48 Dose: 1 each Documented by: Docusate Sodium (Docusate Sodium 100 Mg Capsule) 100 mg PO BID [facility] Last Admin: 07/04/21 20:53 Dose: Not Given Documented by: Gabapentin (Gabapentin 300 Mg Capsule) 300 mg PO QAM [facility] Last Admin: 07/04/21 08:40 Dose: 300 mg Documented by: Gabapentin (Gabapentin 300 Mg Capsule) 600 mg PO HS [facility] Last Admin: 07/04/21 20:48 Dose: 600 mg Documented by: Guaifenesin/Codeine Phosphate (Guaifenesin/Codeine 10 Ml Udc) 10 ml PO Q4HP PRN PRN Reason: Cough Heparin Sodium (Porcine) (Heparin 5,000 Unit/Ml Vial) 5,000 unit SQ Q12 [facility] Last Admin: 07/04/21 20:47 Dose: 5,000 unit Documented by: Azithromycin 500 mg/ Dextrose 250 mls @ 250 mls/hr IV Q24H [facility]; Protocol Stop: 07/05/21 19:26 Last Infusion: 07/04/21 12:34 Dose: Infused Documented by: Potassium Chloride 40 meq/ (Dextrose) 520 mls @ 130 mls/hr IV UD PRN PRN Reason: K+ = or < 3.5 Acetaminophen (Ofirmev) 650 mg in 65 mls @ 130 mls/hr IV Q6HP PRN; Protocol PRN Reason: Per Pain Protocol/Fever > 101 Magnesium Sulfate (Magnesium Sulfate) 2 gm in 50 mls @ 50 mls/hr IV UD PRN PRN Reason: MG = or < 1.7 Last Infusion: 07/04/21 16:54 Dose: Infused Documented by: Insulin Glargine (Insulin Glargine, Human 1 Unit/0.01 Ml) 15 unit SQ DAILY [facility] Last Admin: 07/04/21 08:39 Dose: 15 unit Documented by: Insulin Human Lispro (Insulin Lispro 1 Unit/0.01 Ml Unit) 0 unit SQ ACHS [facility]; Protocol Last Admin: 07/04/21 20:47 Dose: 2 unit Documented by: Iron Carb/Multivit/[place]/Folic Acid (Multivit,Ther Iron,Ca,Fa & Min 1 Tablet) 1 tab PO DAILY [facility] Last Admin: 07/04/21 08:40 Dose: 1 tab Documented by: Levothyroxine Sodium (Levothyroxine 75 Mcg Tablet) [facility] Last Admin: 07/04/21 07:38 Dose: 75 mcg Documented by: Melatonin (Melatonin 3 Mg Tablet) 3 mg PO HSP PRN PRN Reason: Insomnia Metoprolol Tartrate (Metoprolol Tartrate 5 Mg/5 Ml Vial) 5 mg IV Q5M PRN PRN Reason: Heart Rate > 140 bpm Omeprazole (Omeprazole 20 Mg Capsule) 40 mg PO ACB [facility] Last Admin: 07/04/21 07:38 Dose: 40 mg Documented by: Ondansetron HCl (Ondansetron 4 Mg Odt Tablet) 4 mg SL Q4-6HP PRN; Protocol PRN Reason: Nausea And Vomiting Ondansetron HCl (Ondansetron 4 Mg/2 Ml Vial) 4 mg IV Q4-6HP PRN; Protocol PRN Reason: Nausea And Vomiting Polyethylene Glycol (Polyethylene Glycol 3350 17 Gm Packet) 17 gm PO DAILYP PRN PRN Reason: Constipation Potassium Chloride (Potassium Chloride 20 Meq Tablet) [facility] Last Admin: 07/04/21 10:23 Dose: 20 meq Documented by: Potassium Chloride (Potassium Chloride 20 Meq Packet) 40 meq PO DAILYP PRN PRN Reason: K+ < 3.5 Senna/Docusate Sodium (Sennosides/Docusate Sodium 1 Tab Tablet) 1 tab PO HS [facility] Last Admin: 07/04/21 20:53 Dose: Not Given Documented by: Sodium Chloride (0.9 % Sodium Chloride 10 Ml Syringe) 10 ml IV Q8 [facility] Last Admin: 07/05/21 05:19 Dose: 10 ml Documented by: Torsemide (Torsemide 10 Mg Tablet) 20 mg PO DAILY [facility] Constitutional Vitals: Vital Signs Temp Pulse Resp BP Pulse Ox 36.9 C 73 20 115/54 93 07/05/21 03:48 07/05/21 03:48 07/05/21 03:48 07/05/21 03:48 07/05/21 03:48 Period Temp Pulse Resp BP Sys/Kay Pulse Ox Last 24 Hr 36.1 C-37.6 C 65-77 17-22 112-133/51-65 91-100 Intake and Output 07/04/21 07/05/21 07/05/21 21:59 05:59 13:59 Intake Total 410 425 Output Total 200 425 Balance 210 0 Weight 88.632 kg Intake & Output: Intake & Output 07/04/21 07/05/21 07/05/21 21:59 05:59 13:59 Intake Total 410 425 Output Total 200 425 Balance 210 0 Weight 88.632 kg Intake: IV 50 Oral 360 425 Output: Void Amount 200 425 Other: Urine Appearance Clear Urine Color Bright Yellow Urine Odor Foul General appearance: no acute distress and obese Exam: Sleeping comfortably Head Head exam: Present atraumatic and normocephalic Eye Eye exam: Present EOMI and PERRL; Absent nystagmus or scleral icterus Pupils: Present PERRL ENT ENT exam: Present mucous membranes dry Neck Neck exam: Present normal inspection Respiratory Respiratory exam: Present normal respiratory exam; Absent accessory muscle use Cardiovascular Cardiovascular exam: Present normal rate and rhythm, +S1 and +S2; Absent JVD or +S3 GI/Abdominal GI/Abdominal exam: Present normal bowel sounds and soft; Absent distended Extremities Exam Extremities exam: Present normal inspection; Absent calf tenderness, pedal edema or tenderness Back Exam Back exam: Absent CVA tenderness (L) or CVA tenderness (R) Neurological Exam Neurological exam: Present CN II-XII intact and oriented X3; Absent abnormal gait (Not tested) Psychiatric Psychiatric exam: Present flat affect and normal mood Skin Skin exam: Present dry A/P Assessment and plan (1) Acute renal failure superimposed on stage 4 chronic kidney disease: Status: Acute Comment: Hold diuretics (2) CKD stage 4 secondary to hypertension: Status: Acute Comment: Avoid overdiuresis (3) Hyperparathyroidism, secondary renal: Assessment and plan: Start calcitriol Status: Chronic (4) Metabolic acidosis: Assessment and plan: Start HCO3 replacement Status: Acute (5) Acute gouty arthropathy: Assessment and plan: Hold diuretics Monitor serum uric acid Status: Chronic Narrative A/P Narrative: * Reduce carvedilol from 25-to 12.5 mg a day and hold if blood pressure low * Avoid diuretics * Start 1,25 vitamin D3 therapy as calcitriol 0.25 mcg q. Saturday * Recheck calcium phosphorus and PTH levels as an outpatient with Dr. Kay * Start sodium bicarbonate therapy 650 mg p.o. twice daily with meals * Due to type IV RTA avoid BERNA inhibitors ARB medications and aldosterone antagonist due to their propensity to cause hyperkalemia in this patient * Consider treating gram-negative bacilli with culture directed antibiotics avoiding sulfa. * Follow-up with Dr. Kay upon discharge Time Spent With Patient Time: Total time spent is greater than 50% in coordination of care (as documented) at patient's floor/unit and/or counseling patient: Total time spent with greater than 50% in coordination of care (as documented) at patient's floor/unit and/or counseling patient:: 25 - 35 minutes
[2021-07-05] MEDS: INSULIN LISPRO 1 UNIT/0.01 ML UNIT SQ SCH ×4 (08:05→20:46)
[2021-07-05] MEDS: INSULIN GLARGINE, HUMAN 1 UNIT/0.01 ML SQ SCH (08:30)
[2021-07-05] MEDS: TORSEMIDE 10 MG TABLET PO SCH (08:30)
[2021-07-05] MEDS: CARVEDILOL 12.5 MG TABLET PO SCH ×2 (08:30→16:55)
[2021-07-05] MEDS: MULTIVIT,THER IRON,CA,FA & MIN 1 TABLET PO SCH (08:30)
[2021-07-05] MEDS: GABAPENTIN 300 MG CAPSULE PO SCH ×2 (08:31→20:47)
[2021-07-05] MEDS: HEPARIN 5,000 UNIT/ML VIAL SQ SCH ×2 (08:31→20:48)
[2021-07-05] MEDS: amLODIPine 5 MG TABLET PO SCH (08:31)
[2021-07-05] MEDS: OMEPRAZOLE 20 MG CAPSULE PO SCH (08:31)
[2021-07-05] MEDS: ATORVASTATIN 10 MG TABLET PO SCH (08:31)
[2021-07-05] MEDS: POTASSIUM CHLORIDE 20 MEQ TABLET PO SCH (08:31)
[2021-07-05] MEDS: DOCUSATE SODIUM 100 MG CAPSULE PO SCH ×2 (08:32→20:48)
[2021-07-05 09:11] LABS: Basophils # (Auto) 0.03 K/mcL (0.00-0.30); Basophils % (Auto) 0.3 % (0.0-2.0); Eosinophils # (Auto) 0.42 K/mcL (0.00-0.70); Eosinophils % (Auto) 3.9 % (0.0-7.0); Hematocrit 27.4 % (34.1-44.9); Lymphocytes % (Auto) 18.5 % (15.5-49.0); Mean Cell Volume 88.7 fL (80.0-100.0); Mean Corpuscular HGB Conc 32.8 g/dL (31.0-36.0); Mean Platelet Volume 11.9 fL (7.4-10.4); Monocytes % (Auto) 8.3 % (1.0-12.0); Platelet Count 195 K/mcL (140-440); RBC 3.09 M/mcL (3.59-5.38); Red Cell Distribution Width 12.7 % (11.5-14.5); WBC 10.8 K/mcL (4.5-11.0)
[2021-07-05 09:16] LABS: Parathyroid Hormone Intact-SO 448.6 pg/mL (15.0-65.0)
[2021-07-05 09:17] LABS: Creatine Kinase 202 U/L (24-170)
[2021-07-05 09:32] LABS: ALT/SGPT 17 U/L (<40); AST/SGOT 24 U/L (<32); Albumin 2.8 gm/dL (3.2-5.2); Albumin/Globulin Ratio 0.8 (1.0-2.3); Alkaline Phosphatase 102 U/L (39-117); Bilirubin,Direct < 0.2 mg/dL (0-0.3); Bilirubin,Total 0.3 mg/dL (0.1-1.0); Blood Urea Nitrogen 55 mg/dL (8-23); Calcium 6.6 mg/dL (8.6-10.4); Carbon Dioxide 18 mmol/L (22-30); Chloride 99 mmol/L (96-108); Globulin 3.3 gm/dL (2.2-3.7); Glomerular Filtration Rate 16; Glucose 78 mg/dL (70-105); Lactate Dehydrogenase 339 U/L (135-225); Phosphorous 2.8 mg/dL (2.5-4.5); Triglycerides 126 mg/dL (<150); Uric Acid 11.5 mg/dL (2.5-8.0)
[2021-07-05] MEDS: buPROPion 75 MG TABLET PO SCH ×2 (10:43→20:48)
[2021-07-05] MEDS: AZITHROMYCIN 500 MG in DEXTROSE 5% IN WATER 250 ML IV SCH (10:43)
[2021-07-05] MEDS: LEVOTHYROXINE 75 MCG TABLET PO SCH (10:43)
--- NOTE | 2021-07-05 13:34 | Internal Med Progress Note ---
SUBJECTIVE Subjective Patient information: Note initiated : 07/05/21 at 1:30 pm Service Date, if different from initiated Date: [] Patient: Sharla Sanderson a 70 y/o F admitted on 07/03/21 for weakness, SOB. Chief Complaint: [] Principal diagnosis: ARF on CKD 3 Interval history: Ms. Sanderson is a 70 year old F with a history of hypertension/hypothyroidism/CHF/HLD/CKD stage III who presents to the ER after her caregiver currently from [facility] found her in a state of daze this morning. Patient lives alone with the help of caregiver however through the weekend she was trying to manage herself without the caregiver She became increasingly weak fatigued starting Saturday. Her health dramatically spiraled do wn. She was unable to feed herself or drink anything and has been confused throughout the weekend unable to get around. Initial work-up in the ER was consistent with sepsis with UTI/pulmonary conges tion on chest imaging. Patient was started on antibiotic coverage. Also evidence of endorgan dysfunction including elevated creatinine 50% above baseline Subsequently hospitalist service was consulted in light of above At the time of my evaluation patient is accompanied with her caregiver Elvia poon. She was able to answer most of the question. She denies active distress. She denies precipitating events including changes in medication, URI symptoms, diarrhea, dysuria fever chills or exposure to sick contacts. 07/04-patient seen in room. Feels a lot better. Alert lucid. Caregiver at be dside. Tolerating diet. Able to ambulate to the hallway and back to physical therapy. White count down from 15-12.Creatinine improved from 3.1-2.8. Nephrology on board, echocardiogram pending. On 2 L oxygen. No concerns expressed with nursing staff other than an episode of diarrhea. Check C. difficile No overnight fever chills chest pain or telemetry events. Transfer to medical floor. DC IV fluids. 07/05-patient doing well. White count down from 12.6-10.8, hemoglobin 9, creatinine 2.8, phosphorus improved 2.5 with replacement, much more lucid alert and respond to commands, tolerating diet, ambulating with physical therapy down the hallway. Much improved overall. Anticipate discharge in 24 to 48 hours pending clinical improvement. Constitutional Vitals: Vital Signs Temp Pulse Resp BP Pulse Ox 98.0 F 63 20 114/59 96 07/05/21 12:00 07/05/21 12:00 07/05/21 12:00 07/05/21 12:00 07/05/21 12:00 Period Temp Pulse Resp BP Sys/Kay Pulse Ox Last 24 Hr 96.9 F-99.6 F 63-73 18-22 113-133/51-61 92-100 Intake and Output 07/04/21 07/05/21 07/05/21 21:59 05:59 13:59 Intake Total 410 425 490 Output Total 200 425 Balance 210 0 490 Weight 88.632 kg Alert oriented Nonlabored breathing No anxiety No lymphedema Intake & Output: Intake & Output 07/04/21 07/05/21 07/05/21 21:59 05:59 13:59 Intake Total 410 425 490 Output Total 200 425 Balance 210 0 490 Weight 88.632 kg Intake: IV 50 250 Zithromax 500 mg In Dextrose 5% 250 in Water 250 ml @ 250 mls/hr IV Q24H [facility] Rx#:[id number] Oral 360 425 240 Output: Void Amount 200 425 Other: Meal Breakfast Percent of Meal Consumed 100% Urine Appearance Clear Clear Urine Color Bright Yellow Pale Urine Odor Foul Stool Size Small Stool Color Brown Stool Consistency Loose # Voids 1 # Bowel Movements 1 OBJ DATA Labs CBC & Chem 7: 07/05/21 05:12 07/05/21 05:12 Labs: Abnormal Lab Results 07/05/21 07/05/21 07/05/21 05:12 05:12 05:12 WBC RBC 3.09 L Hgb 9.0 L Hct 27.4 L POC Hct MPV 11.9 H Lymph % (Auto) Summers # (Auto) Absolute Neutrophils Carbon Dioxide 18 L POC Total CO2 Anion Gap 17.0 H POC BUN BUN 55 H Creatinine 2.8 H POC Creatinine POC Glucose Uric Acid 11.5 H Calcium 6.6 L POC WB Ioniz Calcium Magnesium Lactate Dehydrogenase 339 H Total Creatine Kinase Troponin T NT-Pro-B Natriuret Pep Albumin 2.8 L Albumin/Globulin Ratio 0.8 L Procalcitonin PTH Intact 448.6 H Urine Appearance Urine Protein Ur Leukocyte Esterase Urine WBC Urine Bacteria Urine Mucus 07/05/21 07/04/21 07/04/21 05:11 05:03 05:02 WBC 12.6 H RBC 3.15 L Hgb 9.7 L Hct 28.2 L POC Hct MPV 12.2 H Lymph % (Auto) 15.4 L Summers # (Auto) 1.15 H Absolute Neutrophils 9.28 H Carbon Dioxide 17 L POC Total CO2 Anion Gap POC BUN BUN 47 H Creatinine 2.8 H POC Creatinine POC Glucose Uric Acid 11.0 H Calcium 6.6 L POC WB Ioniz Calcium Magnesium 1.5 L Lactate Dehydrogenase 291 H Total Creatine Kinase 202 H Troponin T NT-Pro-B Natriuret Pep Albumin 2.8 L Albumin/Globulin Ratio 0.8 L Procalcitonin PTH Intact Urine Appearance Urine Protein Ur Leukocyte Esterase Urine WBC Urine Bacteria Urine Mucus 07/03/21 07/03/21 07/03/21 18:42 14:13 10:19 WBC RBC Hgb Hct POC Hct 30 L MPV Lymph % (Auto) Summers # (Auto) Absolute Neutrophils Carbon Dioxide POC Total CO2 19 L Anion Gap POC BUN 46 H BUN Creatinine POC Creatinine 3.1 H POC Glucose 132 H Uric Acid Calcium POC WB Ioniz Calcium 0.85 L Magnesium Lactate Dehydrogenase Total Creatine Kinase Troponin T NT-Pro-B Natriuret Pep 9470.0 H Albumin Albumin/Globulin Ratio Procalcitonin 1.24 H PTH Intact Urine Appearance Cloudy A Urine Protein 100 A Ur Leukocyte Esterase 500 A Urine WBC 50 H Urine Bacteria Many A Urine Mucus Few A 07/03/21 07/03/21 10:19 10:19 WBC 15.4 H RBC 3.51 L Hgb 10.4 L Hct 31.5 L POC Hct MPV 12.0 H Lymph % (Auto) 13.3 L Summers # (Auto) 1.57 H Absolute Neutrophils 11.73 H Carbon Dioxide POC Total CO2 Anion Gap POC BUN BUN Creatinine POC Creatinine POC Glucose Uric Acid Calcium POC WB Ioniz Calcium Magnesium Lactate Dehydrogenase Total Creatine Kinase Troponin T 0.04 H* NT-Pro-B Natriuret Pep Albumin Albumin/Globulin Ratio Procalcitonin PTH Intact Urine Appearance Urine Protein Ur Leukocyte Esterase Urine WBC Urine Bacteria Urine Mucus Meds: Medications Acetaminophen (Acetaminophen 325 Mg Tablet) 650 mg PO Q4-6HP PRN; Protocol PRN Reason: Per Pain Protocol/Fever > 101 Amlodipine Besylate (Amlodipine 5 Mg Tablet) 5 mg PO QDAY [facility] Last Admin: 07/05/21 08:31 Dose: 5 mg Documented by: Atorvastatin Calcium (Atorvastatin 10 Mg Tablet) 10 mg PO QDAY [facility] Last Admin: 07/05/21 08:31 Dose: 10 mg Documented by: Bisacodyl (Bisacodyl 10 Mg Supp.Rect) 10 mg [place] Q2-3DAYS PRN PRN Reason: Constipation Bupropion HCl (Bupropion 75 Mg Tablet) 75 mg PO BID [facility] Last Admin: 07/05/21 10:43 Dose: 75 mg Documented by: Carvedilol (Carvedilol 12.5 Mg Tablet) 25 mg PO BIDCC [facility] Last Admin: 07/05/21 08:30 Dose: 25 mg Documented by: Diagnostic Test (Pha) (Accu-Chek 1 Each Strip) 1 each FS ACHS [facility] Last Admin: 07/05/21 11:36 Dose: 1 each Documented by: Docusate Sodium (Docusate Sodium 100 Mg Capsule) 100 mg PO BID [facility] Last Admin: 07/05/21 08:32 Dose: Not Given Documented by: Gabapentin (Gabapentin 300 Mg Capsule) 300 mg PO QAM [facility] Last Admin: 07/05/21 08:31 Dose: 300 mg Documented by: Gabapentin (Gabapentin 300 Mg Capsule) 600 mg PO HS [facility] Last Admin: 07/04/21 20:48 Dose: 600 mg Documented by: Guaifenesin/Codeine Phosphate (Guaifenesin/Codeine 10 Ml Udc) 10 ml PO Q4HP PRN PRN Reason: Cough Heparin Sodium (Porcine) (Heparin 5,000 Unit/Ml Vial) 5,000 unit SQ Q12 [facility] Last Admin: 07/05/21 08:31 Dose: 5,000 unit Documented by: Azithromycin 500 mg/ Dextrose 250 mls @ 250 mls/hr IV Q24H [facility]; Protocol Stop: 07/05/21 19:26 Last Infusion: 07/05/21 11:50 Dose: Infused Documented by: Potassium Chloride 40 meq/ (Dextrose) 520 mls @ 130 mls/hr IV UD PRN PRN Reason: K+ = or < 3.5 Acetaminophen (Ofirmev) 650 mg in 65 mls @ 130 mls/hr IV Q6HP PRN; Protocol PRN Reason: Per Pain Protocol/Fever > 101 Magnesium Sulfate (Magnesium Sulfate) 2 gm in 50 mls @ 50 mls/hr IV UD PRN PRN Reason: MG = or < 1.7 Last Infusion: 07/04/21 16:54 Dose: Infused Documented by: Insulin Glargine (Insulin Glargine, Human 1 Unit/0.01 Ml) 15 unit SQ DAILY [facility] Last Admin: 07/05/21 08:30 Dose: 15 unit Documented by: Insulin Human Lispro (Insulin Lispro 1 Unit/0.01 Ml Unit) 0 unit SQ [facility]; Protocol Last Admin: 07/05/21 12:02 Dose: 3 unit Documented by: Iron Carb/Multivit/[place]/Folic Acid (Multivit,Ther Iron,Ca,Fa & Min 1 Tablet) 1 tab PO DAILY [facility] Last Admin: 07/05/21 08:30 Dose: 1 tab Documented by: Levothyroxine Sodium (Levothyroxine 75 Mcg Tablet) 75 mcg PO QACOX MONETT Last Admin: 07/05/21 10:43 Dose: 75 mcg Documented by: Melatonin (Melatonin 3 Mg Tablet) 3 mg PO HSP PRN PRN Reason: Insomnia Metoprolol Tartrate (Metoprolol Tartrate 5 Mg/5 Ml Vial) 5 mg IV Q5M PRN PRN Reason: Heart Rate > 140 bpm Omeprazole (Omeprazole 20 Mg Capsule) 40 mg PO ACB [facility] Last Admin: 07/05/21 08:31 Dose: 40 mg Documented by: Ondansetron HCl (Ondansetron 4 Mg Odt Tablet) 4 mg SL Q4-6HP PRN; Protocol PRN Reason: Nausea And Vomiting Ondansetron HCl (Ondansetron 4 Mg/2 Ml Vial) 4 mg IV Q4-6HP PRN; Protocol PRN Reason: Nausea And Vomiting Polyethylene Glycol (Polyethylene Glycol 3350 17 Gm Packet) 17 gm PO DAILYP PRN PRN Reason: Constipation Potassium Chloride (Potassium Chloride 20 Meq Tablet) [facility] Last Admin: 07/05/21 08:31 Dose: 20 meq Documented by: Potassium Chloride (Potassium Chloride 20 Meq Packet) 40 meq PO DAILYP PRN PRN Reason: K+ < 3.5 Senna/Docusate Sodium (Sennosides/Docusate Sodium 1 Tab Tablet) 1 tab PO HS [facility] Last Admin: 07/04/21 20:53 Dose: Not Given Documented by: Sodium Chloride (0.9 % Sodium Chloride 10 Ml Syringe) 10 ml IV Q8 [facility] Last Admin: 07/05/21 05:19 Dose: 10 ml Documented by: Torsemide (Torsemide 10 Mg Tablet) 20 mg PO DAILY [facility] Last Admin: 07/05/21 08:30 Dose: 20 mg Documented by: A/P Narrative A/P Narrative: * Severe sepsis with endorgan dysfunction, secondary to UTI/suspected pneumonia continue antibiotic coverage, pancultures * Complicated GNR UTI continue antibiotic coverage, sensitivities pending * Acute hypoxic respiratory failure secondary to acute decompensated heart failu re. Clinically improved now on 2 L oxygen nasal cannula. * Acute decompensated heart failure, echo EF 55%, normal RV systolic function. On home dose diuretics. Currently well compensated * Acute on chronic IIIb CKD, nephrology consulted. Creatinine down from 3.1-2.8 * Weakness and deconditioning, continue PT OT/nutrition support * History of DM type II continue basal prandial insulin/CC diet * GERD continue PPI * Hypothyroidism contraction * Neuropathy continue gabapentin * Hypertension continue amlodipine * HLD continue statin * Anxiety disorder continue bupropion * Prophylaxis Heparin Plan * gentle diuresis/antibiotic coverage and de-escalate based on culture sensitivities * Pre-existing medical condition management home medications * PT OT/nutrition support * Discharge planning likely in 24 to 48 hours pending clinical improvement. Case management to coordinate Time Spent With Patient Time: Total time spent is greater than 50% in coordination of care (as documented) at patient's floor/unit and/or counseling patient: QUALITY VTE Deep Vein Thrombosis/Pulmonary Embolism Present on Admission: No
[2021-07-05] MEDS ORDERED: CALCITRIOL 0.25 MCG CAPSULE PO SCH (13:35)
[2021-07-05] MEDS: SODIUM BICARBONATE 650 MG TABLET PO SCH (16:55)
[2021-07-05] MEDS: SENNOSIDES/DOCUSATE SODIUM 1 TAB TABLET PO SCH (20:48)
[2021-07-06] MEDS: 0.9 % SODIUM CHLORIDE 10 ML SYRINGE IV SCH (05:21)
[2021-07-06 06:59] LABS: Basophils # (Auto) 0.04 K/mcL (0.00-0.30); Basophils % (Auto) 0.5 % (0.0-2.0); Eosinophils % (Auto) 4.6 % (0.0-7.0); Hematocrit 29.6 % (34.1-44.9); Hemoglobin 9.8 g/dL (11.2-15.7); Lymphocytes # (Auto) 2.68 K/mcL (1.50-4.80); Lymphocytes % (Auto) 30.5 % (15.5-49.0); Mean Cell Volume 90.8 fL (80.0-100.0); Mean Corpuscular HGB Conc 33.1 g/dL (31.0-36.0); Mean Platelet Volume 11.1 fL (7.4-10.4); Monocytes # (Auto) 0.83 K/mcL (0.10-0.90); Monocytes % (Auto) 9.5 % (1.0-12.0); Neutrophils % (Auto) 54.9 % (38.0-78.0); Platelet Count 204 K/mcL (140-440); RBC 3.26 M/mcL (3.59-5.38); Red Cell Distribution Width 12.7 % (11.5-14.5); WBC 8.8 K/mcL (4.5-11.0)
[2021-07-06] MEDS: OMEPRAZOLE 20 MG CAPSULE PO SCH (07:32)
[2021-07-06] MEDS: LEVOTHYROXINE 75 MCG TABLET PO SCH (07:32)
[2021-07-06] MEDS: INSULIN LISPRO 1 UNIT/0.01 ML UNIT SQ SCH ×2 (07:36→11:40)
[2021-07-06 07:44] LABS: ALT/SGPT 18 U/L (<40); AST/SGOT 20 U/L (<32); Albumin/Globulin Ratio 0.9 (1.0-2.3); Alkaline Phosphatase 102 U/L (39-117); Bilirubin,Direct < 0.2 mg/dL (0-0.3); Bilirubin,Total 0.2 mg/dL (0.1-1.0); Blood Urea Nitrogen 54 mg/dL (8-23); Calcium 6.5 mg/dL (8.6-10.4); Carbon Dioxide 17 mmol/L (22-30); Chloride 98 mmol/L (96-108); Globulin 3.3 gm/dL (2.2-3.7); Glomerular Filtration Rate 16; Glucose 93 mg/dL (70-105); Lactate Dehydrogenase 309 U/L (135-225); Phosphorous 2.7 mg/dL (2.5-4.5); Triglycerides 136 mg/dL (<150); Uric Acid 11.1 mg/dL (2.5-8.0)
[2021-07-06] MEDS: TORSEMIDE 10 MG TABLET PO SCH (08:23)
[2021-07-06] MEDS: HEPARIN 5,000 UNIT/ML VIAL SQ SCH (08:23)
[2021-07-06] MEDS: POTASSIUM CHLORIDE 20 MEQ TABLET PO SCH (08:23)
[2021-07-06] MEDS: ATORVASTATIN 10 MG TABLET PO SCH (08:23)
[2021-07-06] MEDS: amLODIPine 5 MG TABLET PO SCH (08:24)
[2021-07-06] MEDS: MULTIVIT,THER IRON,CA,FA & MIN 1 TABLET PO SCH (08:24)
[2021-07-06] MEDS: CARVEDILOL 12.5 MG TABLET PO SCH (08:24)
[2021-07-06] MEDS: GABAPENTIN 300 MG CAPSULE PO SCH (08:24)
[2021-07-06] MEDS: SODIUM BICARBONATE 650 MG TABLET PO SCH (08:25)
[2021-07-06] MEDS: DOCUSATE SODIUM 100 MG CAPSULE PO SCH (08:25)
[2021-07-06] MEDS: INSULIN GLARGINE, HUMAN 1 UNIT/0.01 ML SQ SCH (08:25)
[2021-07-06] MEDS: buPROPion 75 MG TABLET PO SCH (08:26)
--- NOTE | 2021-07-06 09:45 | Nephrology Progress Note ---
SUBJECTIVE Subjective Patient information: Note initiated : 07/06/21 at 9:42 am Service Date, if different from initiated Date: [] Patient: Sharla Sanderson 70 y/o F admitted on 07/03/21 for weakness, SOB. Chief Complaint: [leg weakness] Principal diagnosis: ARF on CKD 3 Interval history: Admitted with leg weakness and failure to thrive 70 yr old followed by Dr Kay. 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 Initial Urine with Gm Neg bacilli => E Coli LVEF 50-55% and nl diastolic Fx Laboratory Tests 07/06/21 05:07 Sodium 133 Potassium 4.1 Chloride 98 Carbon Dioxide 17 L Anion Gap 18.0 H BUN 54 H Creatinine 2.8 H GFR Calculation 16 Glucose 93 Uric Acid 11.1 H Calcium 6.5 L Phosphorus 2.7 Magnesium 2.0 Albumin 3.0 L Serum Creatinine Urine Culture Reflex Preliminary 07/05/21-1649 PRL Organism 1 Escherichia coli Org 1: Gram Negative Bacillus (Isolate 1) > 100,000 cfu/ml (Isolate 1) Identification and Susceptibility to Follow. (Isolate 1) Org 1: Gram Negative Bacillus (Isolate 1)\[id number]\Escherichia coli (Isolate 1) > 100,000 cfu/ml (Isolate 1) Susceptibility to Follow (Isolate 1) Possible ESBL Isolate Vital Signs Temp Pulse Resp BP BP Pulse Ox 07/06/21 07:41 36.3 C 65 18 114/48 95 07/06/21 04:26 36.7 C 63 18 106/47 95 07/05/21 20:00 36.8 C 16 120/65 95 07/05/21 19:20 64 95 07/05/21 16:00 36.5 C 67 20 132/62 97 07/05/21 12:00 36.7 C 63 20 114/59 96 Intake and Output 07/05/21 07/06/21 07/06/21 21:59 05:59 13:59 Intake Total 1040 400 Output Total 650 Balance 1040 -250 Intake: Oral 1040 400 Output: Void Amount 650 Other: Meal Dinner Percent of Meal Consumed 75% Feeding Ability Assist with Tray Set Up Urine Appearance Cloudy Urine Color Bright Yellow # Voids 2 Weight 89.993 kg Microbiology 07/03/21 18:48 Blood Blood Culture - Preliminary 07/03/21 18:42 Blood Blood Culture - Preliminary 07/03/21 14:13 Urine - Catheterized Urine Culture - Preliminary Escherichia coli 07/03/21 15:46 Nasopharynx SARS-CoV-2 by PCR (DENAE) - Final Medications Acetaminophen (Acetaminophen 325 Mg Tablet) 650 mg PO Q4-6HP PRN; Protocol PRN Reason: Per Pain Protocol/Fever > 101 Amlodipine Besylate (Amlodipine 5 Mg Tablet) 5 mg PO QDAY [facility] Last Admin: 07/06/21 08:24 Dose: 5 mg Documented by: Atorvastatin Calcium (Atorvastatin 10 Mg Tablet) 10 mg PO QDAY [facility] Last Admin: 07/06/21 08:23 Dose: 10 mg Documented by: Bisacodyl (Bisacodyl 10 Mg Supp.Rect) 10 mg [place] Q2-3DAYS PRN PRN Reason: Constipation Bupropion HCl (Bupropion 75 Mg Tablet) 75 mg PO BID [facility] Last Admin: 07/06/21 08:26 Dose: 75 mg Documented by: Calcitriol (Calcitriol 0.25 Mcg Capsule) 0.25 mcg PO MoWeFr@0900 [facility] Last Admin: 07/05/21 15:54 Dose: 0.25 mcg Documented by: Carvedilol (Carvedilol 12.5 Mg Tablet) 12.5 mg PO BIDCC [facility] Last Admin: 07/06/21 08:24 Dose: 12.5 mg Documented by: Diagnostic Test (Pha) (Accu-Chek 1 Each Strip) 1 each FS ACHS [facility] Last Admin: 07/06/21 07:33 Dose: 1 each Documented by: Docusate Sodium (Docusate Sodium 100 Mg Capsule) 100 mg PO BID [facility] Last Admin: 07/06/21 08:25 Dose: Not Given Documented by: Gabapentin (Gabapentin 300 Mg Capsule) 300 mg PO QAM [facility] Last Admin: 07/06/21 08:24 Dose: 300 mg Documented by: Gabapentin (Gabapentin 300 Mg Capsule) 600 mg PO HS [facility] Last Admin: 07/05/21 20:47 Dose: 600 mg Documented by: Guaifenesin/Codeine Phosphate (Guaifenesin/Codeine 10 Ml Udc) 10 ml PO Q4HP PRN PRN Reason: Cough Heparin Sodium (Porcine) (Heparin 5,000 Unit/Ml Vial) 5,000 unit SQ Q12 [facility] Last Admin: 07/06/21 08:23 Dose: 5,000 unit Documented by: Potassium Chloride 40 meq/ (Dextrose) 520 mls @ 130 mls/hr IV UD PRN PRN Reason: K+ = or < 3.5 Acetaminophen (Ofirmev) 650 mg in 65 mls @ 130 mls/hr IV Q6HP PRN; Protocol PRN Reason: Per Pain Protocol/Fever > 101 Magnesium Sulfate (Magnesium Sulfate) 2 gm in 50 mls @ 50 mls/hr IV UD PRN PRN Reason: MG = or < 1.7 Last Infusion: 07/04/21 16:54 Dose: Infused Documented by: Insulin Glargine (Insulin Glargine, Human 1 Unit/0.01 Ml) 15 unit SQ DAILY [facility] Last Admin: 07/06/21 08:25 Dose: 15 unit Documented by: Insulin Human Lispro (Insulin Lispro 1 Unit/0.01 Ml Unit) 0 unit SQ ACHS [facility]; Protocol Last Admin: 07/06/21 07:36 Dose: Not Given Documented by: Iron Carb/Multivit/[place]/Folic Acid (Multivit,Ther Iron,Ca,Fa & Min 1 Tablet) 1 tab PO DAILY [facility] Last Admin: 07/06/21 08:24 Dose: 1 tab Documented by: Levothyroxine Sodium (Levothyroxine 75 Mcg Tablet) 75 mcg PO QAMAC [facility] Last Admin: 07/06/21 07:32 Dose: 75 mcg Documented by: Melatonin (Melatonin 3 Mg Tablet) 3 mg PO HSP PRN PRN Reason: Insomnia Metoprolol Tartrate (Metoprolol Tartrate 5 Mg/5 Ml Vial) 5 mg IV Q5M PRN PRN Reason: Heart Rate > 140 bpm Omeprazole (Omeprazole 20 Mg Capsule) 40 mg PO ACB [facility] Last Admin: 07/06/21 07:32 Dose: 40 mg Documented by: Ondansetron HCl (Ondansetron 4 Mg Odt Tablet) 4 mg SL Q4-6HP PRN; Protocol PRN Reason: Nausea And Vomiting Ondansetron HCl (Ondansetron 4 Mg/2 Ml Vial) 4 mg IV Q4-6HP PRN; Protocol PRN Reason: Nausea And Vomiting Polyethylene Glycol (Polyethylene Glycol 3350 17 Gm Packet) 17 gm PO DAILYP PRN PRN Reason: Constipation Potassium Chloride (Potassium Chloride 20 Meq Tablet) 20 meq PO QAMCC [facility] Last Admin: 07/06/21 08:23 Dose: 20 meq Documented by: Potassium Chloride (Potassium Chloride 20 Meq Packet) 40 meq PO DAILYP PRN PRN Reason: K+ < 3.5 Senna/Docusate Sodium (Sennosides/Docusate Sodium 1 Tab Tablet) 1 tab PO HS [facility] Last Admin: 07/05/21 20:48 Dose: Not Given Documented by: Sodium Bicarbonate (Sodium Bicarbonate 650 Mg Tablet) 650 mg PO BIDCC [facility] Last Admin: 07/06/21 08:25 Dose: 650 mg Documented by: Sodium Chloride (0.9 % Sodium Chloride 10 Ml Syringe) 10 ml IV Q8 [facility] Last Admin: 07/06/21 05:21 Dose: 10 ml Documented by: Torsemide (Torsemide 10 Mg Tablet) 20 mg PO DAILY [facility] Last Admin: 07/06/21 08:23 Dose: 20 mg Documented by: Pertinent ROS: Nothing new Improved strength Constitutional Vitals: Vital Signs Temp Pulse Resp BP Pulse Ox 36.3 C 65 18 114/48 95 07/06/21 07:41 07/06/21 07:41 07/06/21 07:41 07/06/21 07:41 07/06/21 07:41 Period Temp Pulse Resp BP Sys/Kay Pulse Ox Last 24 Hr 36.3 C-36.8 C 63-67 16-20 106-132/47-65 95-97 Intake and Output 07/05/21 07/06/21 07/06/21 21:59 05:59 13:59 Intake Total 1040 400 Output Total 650 Balance 1040 -250 Weight 89.993 kg Intake & Output: Intake & Output 07/05/21 07/06/21 07/06/21 21:59 05:59 13:59 Intake Total 1040 400 Output Total 650 Balance 1040 -250 Weight 89.993 kg Intake: Oral 1040 400 Output: Void Amount 650 Other: Meal Dinner Percent of Meal Consumed 75% Feeding Ability Assist with Tray Set Up Urine Appearance Cloudy Urine Color Bright Yellow # Voids 2 General appearance: no acute distress and obese Head Head exam: Present atraumatic and normocephalic Eye Eye exam: Present EOMI and PERRL; Absent nystagmus or scleral icterus ENT ENT exam: Present mucous membranes moist Neck Neck exam: Present normal inspection; Absent meningismus Respiratory Respiratory exam: Present normal respiratory exam and CTAB Cardiovascular Cardiovascular exam: Present normal rate and rhythm, +S1 and +S2; Absent RRR or rubs GI/Abdominal GI/Abdominal exam: Present normal bowel sounds; Absent tenderness Extremities Exam Extremities exam: Absent pedal edema, tenderness or Gregor's sign Back Exam Back exam: Absent CVA tenderness (R) Neurological Exam Neurological exam: Present alert, CN II-XII intact and normal gait Psychiatric Psychiatric exam: Present normal affect and normal mood Skin Skin exam: Absent pallor, petechiae or rash A/P Narrative A/P Narrative: (1) Acute renal failure superimposed on stage 4 chronic kidney disease: (2) CKD stage 4 secondary to hypertension: (3) Hyperparathyroidism, secondary renal: Assessment and plan: Start calcitriol (4) Metabolic acidosis: Assessment and plan: Start HCO3 replacement (5) Acute gouty arthropathy: Assessment and plan: Hold diuretics Monitor serum uric acid Narrative A/P Narrative: * Reduce carvedilol from 25-to 12.5 mg a day and hold if blood pressure low * Avoid diuretics * Start 1,25 vitamin D3 therapy as calcitriol 0.25 mcg q Day * Recheck calcium phosphorus and PTH levels as an outpatient with Dr. Kay * Start sodium bicarbonate therapy 1300 mg po TID with meals * Due to type IV RTA avoid BERNA inhibitors ARB medications and aldosterone antag onist due to their propensity to cause hyperkalemia in this patient * Consider treating gram-negative bacilli with culture directed antibiotics avoiding sulfa. * Follow-up with Dr. Kay upon discharge Time Spent With Patient Time: Total time spent is greater than 50% in coordination of care (as documented) at patient's floor/unit and/or counseling patient: Total time spent with greater than 50% in coordination of care (as documented) at patient's floor/unit and/or counseling patient:: 25 - 35 minutes
[2021-07-06] MEDS ORDERED: CALCITRIOL 0.25 MCG CAPSULE PO SCH (10:00)
--- NOTE | 2021-07-06 11:15 | Discharge Summary ---
Discharge Provider Provider Patient information: Note initiated : 07/06/21 at 11:13 am Service Date, if different from initiated Date: [] Patient: Sharla Sanderson 70 y/o F admitted on 07/03/21 for weakness, SOB. Chief Complaint: [] Date of admission: 07/03/21 18:18 Discharge date: 07/06/21 Primary care physician: Jose G Greer Consults: 07/03/21 Consult to Physician [CONS] Stat Comment: Consulting Provider: Kit Garza Reason For Exam: Physician to Consult 07/03/21 18:27 Consult to Physician [CONS] Routine Comment: Consulting Provider: Rahul Gr Reason For Exam: Physician to Consult Discharge Meds Discharge Medications Home Medications ferrous sulfate 28 mg iron tablet 325 mg PO QDAY 07/25/16 [History Confirmed 07/03/21 Last Taken 07/13/20] flunisolide 25 mcg (0.025 %) nasal spray 2 spray INTRANASAL BID PRN #25 ml 12/31/16 [Rx Confirmed 07/03/21 Last Taken 07/13/20] glipizide 10 mg tablet 10 mg PO QDAY #90 tab 07/09/17 [Rx Confirmed 07/03/21 Last Taken 07/13/20] gabapentin 300 mg capsule See Dose Instructions .ROUTE .COMPLEX #90 cap 07/19/17 [Rx Confirmed 07/03/21 Last Taken Unknown] omeprazole 40 mg capsule,delayed release 40 mg PO QDAY #90 cap 10/24/17 [Rx Confirmed 07/03/21 Last Taken 07/13/20] atorvastatin 10 mg tablet 10 mg PO QDAY #90 tab 05/22/18 [Rx Confirmed 07/03/21 Last Taken 07/13/20] levothyroxine 75 mcg tablet 75 mcg PO QDAY #30 tab 07/22/18 [Rx Confirmed 1 09/02/20 Last Taken 07/13/20] amlodipine 5 mg tablet 10 mg PO QDAY 07/24/18 [History Confirmed 07/03/21 Last Taken 07/13/20] potassium chloride 10 mEq capsule,extended release 20 meq PO QDAY 07/24/18 [ History Confirmed 07/03/21 Last Taken 07/13/20] torsemide 20 mg tablet 20 mg PO QDAY #90 tab 07/24/18 [Rx Confirmed 07/03/21 Last Taken 07/13/20] bupropion HCl 75 mg tablet 75 mg PO BID 01/22/19 [History Confirmed 07/03/21 Last Taken Unknown] insulin glargine 100 unit/mL (3 mL) subcutaneous pen 15 unit SQ DAILY 01/22/19 [History Confirmed 07/03/21 Last Taken 06/30/21] carvedilol 25 mg tablet 25 mg PO BID 07/03/21 [History Confirmed 07/03/21 Last Taken Unknown] clotrimazole-betamethasone 1 %-0.05 % topical cream 1 applic TOPICAL BID PRN 07/03/21 [History Confirmed 07/03/21 Last Taken Unknown] denosumab 60 mg/mL subcutaneous syringe (Prolia) 60 mg SUBCUT ONCE 07/03/21 [History Confirmed 07/03/21 Last Taken Unknown] ondansetron HCl 4 mg tablet 4 mg PO Q6H PRN 07/03/21 [History Confirmed 07/03/21 Last Taken Unknown] tramadol 50 mg tablet 50 mg PO BID PRN 07/03/21 [History Confirmed 07/03/21 Last Taken Unknown] vitamin B complex 1 cap PO WEEKLY 07/03/21 [History Confirmed 07/03/21 Last Take n Unknown] amoxicillin 875 mg-potassium clavulanate 125 mg tablet 1 tab PO BID #10 tab 07/06/21 [Rx Last Taken Unknown] cefdinir 300 mg capsule 300 mg PO BID #10 cap 07/06/21 [Rx Last Taken Unknown] COURSE Hospital Course Hospital course: DISCHARGE DIAGNOSIS * Severe sepsis with endorgan dysfunction, secondary to UTI/clinically improved. Continue antibiotic coverage for additional 5 days * Complicated E. coli UTI continue antibiotic coverage for additional 3 days * Acute hypoxic respiratory failure secondary to acute decompensated heart failure. Clinically resolved. Now on room air * Acute decompensated heart failure, echo EF 55%, normal RV systolic function. On home dose diuretics. Currently well compensated * Acute on chronic IIIb CKD, nephrology consulted. Creatinine down from 3.1- 2.8. Recommend outpatient follow-up with nephrology * Weakness and deconditioning, continue PT OT/nutrition support * History of DM type II continue basal prandial insulin/CC diet * GERD continue PPI * Hypothyroidism contraction * Neuropathy continue gabapentin * Hypertension continue amlodipine * HLD continue statin * Anxiety disorder continue bupropion BRIEF HOSPITAL COURSE Ms. Sanderson is a 70 year old F with a history of hypertension/hypothyroidism/CHF/HLD/CKD stage III who presents to the ER after her caregiver currently from [facility] found her in a state of daze this morning. Patient lives alone with the help of caregiver however through the weekend she was trying to manage herself without the caregiver She became increasingly weak fatigued starting Saturday. Her health dramatically spiraled down. She was unable to feed herself or drink anything and has been confused throughout the weekend unable to get around. Initial work-up in the ER was consistent with sepsis with UTI/pulmonary congestion on chest imaging. Patient was started on antibiotic coverage. Also evidence of endorgan dysfunction including elevated creatinine 50% above baseline Subsequently hospitalist service was consulted in light of above At the time of my evaluation patient is accompanied with her caregiver Chinyere. She was able to answer most of the question. She denies active distress. She denies precipitating events including changes in medication, URI symptoms, diarrhea, dysuria fever chills or exposure to sick contacts. 07/04-patient seen in room. Feels a lot better. Alert lucid. Caregiver at bedside. Tolerating diet. Able to ambulate to the hallway and back to physical therapy. White count down from 15-12.Creatinine improved from 3.1-2.8. Nephrology on board, echocardiogram pending. On 2 L oxygen. No concerns expressed with nursing staff other than an episode of diarrhea. Check C. difficile No overnight fever chills chest pain or telemetry events. Transfer to medical floor. DC IV fluids. 07/05-patient doing well. White count down from 12.6-10.8, hemoglobin 9, creatinine 2.8, phosphorus improved 2.5 with replacement, much more lucid alert and respond to commands, tolerating diet, ambulating with physical therapy down the hallway. Much improved overall. Anticipate discharge in 24 to 48 hours pending clinical improvement. 07/06-patient doing a lot better. White count down to 8.8, creatinine baseline at 2.8, discharging home with advised to continue antibiotics for additional 5 days. No overnight fever chills. Feels at baseline. Ambulating physical therapy. Denies lightheadedness dizziness. Discharge diagnosis: . Time Spent with Patient Time attestation: Total time spent providing and/or coordinating discharge services: EXAM Constitutional Vitals: Temp Pulse Resp BP Pulse Ox 97.4 F 65 18 114/48 95 07/06/21 07:41 07/06/21 07:41 07/06/21 07:41 07/06/21 07:41 07/06/21 07:41 Discharge Data Data Completed and Pending Labs on day of discharge: Labs from last 24 hours 07/06/21 07/06/21 05:07 05:07 WBC 8.8 RBC 3.26 L Hgb 9.8 L Hct 29.6 L MCV 90.8 MCH 30.1 MCHC 33.1 RDW 12.7 Plt Count 204 MPV 11.1 H Neut % (Auto) 54.9 Lymph % (Auto) 30.5 Luna % (Auto) 9.5 Eos % (Auto) 4.6 Baso % (Auto) 0.5 Lymph # (Auto) 2.68 Luna # (Auto) 0.83 Eos # (Auto) 0.40 Baso # (Auto) 0.04 Absolute Neutrophils 4.83 Sodium 133 Potassium 4.1 Chloride 98 Carbon Dioxide 17 L Anion Gap 18.0 H BUN 54 H Creatinine 2.8 H GFR Calculation 16 Glucose 93 Uric Acid 11.1 H Calcium 6.5 L Phosphorus 2.7 Magnesium 2.0 Total Bilirubin 0.2 Direct Bilirubin < 0.2 GGT 29 AST 20 ALT 18 Alkaline Phosphatase 102 Lactate Dehydrogenase 309 H Total Protein 6.3 Albumin 3.0 L Globulin 3.3 Albumin/Globulin Ratio 0.9 L Triglycerides 136 Preliminary micro results at discharge 07/03/21 18:48 Blood Culture - Preliminary Blood 07/03/21 18:42 Blood Culture - Preliminary Blood 07/03/21 14:13 Urine Culture - Preliminary Urine - Catheterized Escherichia coli Discharge Plan Patient/Caregiver Discharge Instructions Activity: increase activity as tolerated Diet: Renal/Consistent Carbs Instructions: Cefdinir (By mouth), Urinary Tract Infection in Women (DC), Sepsis (GEN) Activity Restrictions/Additional Instructions: Continue antibiotic for additional 5 days. Increase activity as tolerated. Renal/consistent carbohydrate diet as tolerated. This discharge packet is provided to you to help keep you informed about your care. We want to ensure you get everything you need when you go home. You will also be receiving a call from us in a few days to follow up with you and see how you are doing since your discharge. This gives us a chance to listen to any concerns you maybe experiencing since you were discharged or any additional needs you may have, as well as providing us feedback on your care experience. We strive to always provide excellent care and thank you for your feedback and for choosing [facility]. Prescriptions: New cefdinir 300 MG capsule 300 mg PO BID Qty: 10 0RF amoxicillin-pot clavulanate 875-125 mg Tablet 1 tab PO BID Qty: 10 0RF Continued flunisolide 25 mcg (0.025 %) spray,non-aerosol 2 spray INTRANASAL BID PRN (Reason: Symptoms) Qty: 25 12RF glipizide 10 mg tablet 10 mg PO QDAY Qty: 90 3RF gabapentin 300 mg capsule See Dose Instructions mg .ROUTE .COMPLEX Qty: 90 11RF Dose Instruction: Take 1 capsule each morning and 2 capsules in the evening Rx Instructions: Take 1 capsule each morning and 2 capsules in the evening atorvastatin 10 mg tablet 10 mg PO QDAY Qty: 90 1RF levothyroxine 75 mcg tablet 75 mcg PO QDAY Qty: 30 12RF ferrous sulfate 28 mg iron tablet 325 mg PO QDAY 0RF Label Comments: Patient is not certain on dose of iron she takes omeprazole 40 mg capsule,delayed release(DR/EC) 40 mg PO QDAY Qty: 90 3RF Rx Instructions: swallow whole (do not chew/crush/cut) amlodipine 5 mg tablet 10 mg PO QDAY 0RF potassium chloride 10 mEq capsule, extended release 20 meq PO QDAY 0RF torsemide 20 mg tablet 20 mg PO QDAY Qty: 90 3RF bupropion HCl 75 MG tablet 75 mg PO BID 0RF insulin glargine 100 UNIT/ML insulin pen 15 unit SQ DAILY 0RF vitamin B complex Capsule 1 cap PO WEEKLY 0RF Prolia 60 mg/mL Syringe 60 mg SUBCUT ONCE 0RF Rx Instructions: twice yearly tramadol 50 mg Tablet 50 mg PO BID PRN (Reason: Pain) 0RF ondansetron HCl 4 mg Tablet 4 mg PO Q6H PRN (Reason: Nausea) 0RF clotrimazole-betamethasone 1-0.05 % Cream 1 applic TOPICAL BID PRN (Reason: Rash) 0RF carvedilol 25 mg tablet 25 mg PO BID 0RF Follow Up Plan Follow up with: Jose G Greer MD [Primary Care Provider] - (Please call and schedule a hospital follow up to be seen in 7-10 days.) Tristan Kay MD [Physician] - (Please call and schedule a hospital follow up to be seen in 7-10 days.) Patient Disposition: Home, Self-Care Rehab Potential: Good Overall status at discharge: patient is back to baseline Discharge Orders: Discharge Order (Routine); Ordered 07/06/21 Ordered By: Kit BERKOWITZ VTE Deep Vein Thrombosis/Pulmonary Embolism Present on Admission: No
[2021-07-06] MEDS ORDERED: cefTRIAXone 2 GM in DEXTROSE 5% IN WATER 50 ML IV ONE (11:30)
[2021-07-06] MEDS ORDERED: SODIUM BICARBONATE 650 MG TABLET PO SCH (12:00)
== END 2021-07-06 13:30 | disposition home or self-care (01) | DRG 871 ==
LOC: ED 09:34 → ICU 18:18 → MEDSUR 07-04 16:40
PROVIDERS: ADMIT Internal Medicine; ATTEND Internal Medicine